=== PATIENT | male | born 1945 | race Caucasian/White ===

== ENCOUNTER → 2018-11-16 | Outpatient (CLI) | payer MEDICARE ==
--- NOTE | 2018-11-16 12:01 | CT ---
EXAMINATION TYPE: CT iac wo con DATE OF EXAM: 11/16/2018 COMPARISON: None HISTORY: Bleeding from tubes in ears x [address] DLP: 142.7mGycm Automated exposure control for dose reduction was used. FINDINGS: The external auditory canals are patent bilaterally. Mastoid air cells show hypoaeration c ompatible with chronic mastoiditis. Mucosal thickening ethmoid air cells and mucosal thickening and waviness sphenoid sinus and left maxillary sinus compatible with chronic sinusitis. The middle ear ossicles are symmetric and unremarkable. There is no evidence of suspicious surroundi ng soft tissue density to suggest cholesteatoma. The scutum is preserved bilaterally. The cochlea and the semicircular canals are symmetric and unrem arkable. Vestibular aqueduct and internal carotid canal appear unremarkable. Temporomandibular join ts are maintained bilaterally. IMPRESSION: 1. Marked hypoaeration of the mastoid air cells compatible with chronic mastoiditis. 2. Chronic ethmoidal sinusitis.
== END ==
LOC: RADCTMAIN 11:25
PROVIDERS: ATTEND Otolaryngology Otolaryngology/Facial Plastic Surgery
DX: R93.89 Abnormal findings on diagnostic imaging of other specified body structures (principal)
CPT/HCPCS: 70480

== ENCOUNTER → 2019-03-28 | Outpatient (CLI) | payer MEDICARE ==
--- NOTE | 2019-03-28 14:41 | BD ---
EXAMINATION TYPE: Axial Bone Density DATE OF EXAM: 03/28/2019 COMPARISON: NONE CLINICAL HISTORY: Loss of height. Height: 5 FT 5 IN Weight: 245 FRAX RISK QUESTIONS: Alcohol (3 or more units per day): NO Family History (Parent hip fracture): NO Glucocorticoids (More than 3mos): NO (Ex: prednisone, prednisolone, methylprednisolone, dexamethasone, and hydrocortisone). History of Fracture in Adulthood: NO Secondary Osteoporosis: 1. Type 1 Diabetes: NO 2. Hyperthyroidism: NO 3. Menopause before 45: NA 4. Malnutrition: NO 5. Chronic liver disease: NO Rheumatoid Arthritis: NO Current Tobacco Use: NO RISK FACTORS HISTORY OF: Active: YES Lost more than 2 inches in height since high school: YES MEDICATIONS: Additional Medications: CHOLESTEROL MEDS, BLOOD PRESSURE MEDS, PLAVIX, BABY ASPIRIN, , HEART MEDS, Additional History: PT HAD STENTS 2016 EXAM MEASUREMENTS: Bone mineral densitometry was performed using the [employer] System. Bone mineral density as measured about the Lumbar spine is: ----- L1-L4(G/cm2): 1.534 T Score Values are as follows: ----- L2: 2.6 ----- L3: 3.6 ----- L4: 4.1 ----- L1-L4: 2.9 BASELINE Bone mineral density about the R hip (g/cm2): 1.024 Bone mineral density about the L hip (g/cm2): 0.991 T Score values are as follows: -----R Neck: -0.1 -----L Neck: -0.3 -----R Total: 1.0 -----L Total: 0.7 BASELINE IMPRESSION: Normal (Values between +1 and -1 indicate normal bone mass). Consider repeating this study in 5 year s or sooner if there is some new clinical indication. NOTE: T-SCORE=SD OF THE YOUNG ADULT MEAN.
== END | disposition home or self-care (01) ==
LOC: RADBDWWP 10:58
PROVIDERS: ATTEND Family Medicine
DX: Z13.820 Encounter for screening for osteoporosis (principal); R29.890 Loss of height
CPT/HCPCS: 77080

== ENCOUNTER → 2019-11-01 | Outpatient (CLI) | payer MEDICARE ==
[2019-11-01 17:07] LABS: African American GFR (CKD) 63.2 (60.0-200.0); Anion Gap 4.3 mmol/L (4.00-12.00); BUN/Creat Ratio 14.62 Ratio (12.00-20.00); Calcium 9.3 mg/dL (8.7-10.3); Carbon Dioxide 28.7 mmol/L (21.6-31.8); Non-African American GFR(CKD) 54.5 (60.0-200.0); Potassium 4.5 mmol/L (3.5-5.5)
== END | disposition home or self-care (01) ==
LOC: LABWHC1 09:35
PROVIDERS: ATTEND Nurse Practitioner
DX: I48.91 Unspecified atrial fibrillation (principal)
CPT/HCPCS: 36415; 80048; 83735

== ENCOUNTER 2019-12-27 06:07 | Day surgery (SDC) | payer MEDICARE ==
[2019-12-24 14:35] VITALS: BMI 39.9
[~2019-12-27 06:07] MED LIST: SODIUM CHLORIDE 0.9% 1,000 ML IV SCH
[2019-12-27 06:36] VITALS: TEMP 98.6
[2019-12-27] MEDS ORDERED: SODIUM CHLORIDE 0.9% 500 ML 500 ML IV ONE (06:36)
[2019-12-27 07:25] LABS: Calcium 8.8 mg/dL (8.4-10.2)
[2019-12-27] MEDS ORDERED: PROPOFOL 10 MG/ML 20 ML VIAL IV ONE (07:30)
[2019-12-27 07:33] LABS: Potassium 4.7 mmol/L (3.5-5.1)
[2019-12-27 08:07] VITALS: RESP 16
--- NOTE | 2019-12-27 10:01 | CE ---
CARDIAC ELECTROPHYSIOLOGY REPORT ELECTRICAL CARDIOVERSION REPORT: INDICATION: Persistent atrial fibrillation in spite of pharmacological efforts. This patient has additionally CAD, prior PCI, hypertension, hyperlipidemia, and bipolar disorder. Risks, benefits, options were explained and he was brought in for the procedure electively. PROCEDURE NOTE: Under the influence of ultra short-acting intravenous anesthetic agent with the attendance of the anesthesiologist, Dr. Santana, a single shock was delivered to the chest wall with anterior and posterior patches. The 250 joules shock was delivered and patient converted to sinus rhythm. This was a successful electrical cardioversion. He remains neurologically intact, hemodynamically stable with sinus bradycardia at 50 beats per minute. Patient will be discharged later on today after he is up and ambulatory. He will be decreasing the amiodarone to 200 mg daily and metoprolol tartrate to 25 mg daily in the morning only and continue Eliquis 5 mg b.i.d. without aspirin 81 mg daily. The details were discussed with the patient as well as his . [id number] / ALICIAN: [id number] /
[2019-12-27 16:33] VITALS: BP 117/58; PULSE 59
[2019-12-27] MEDS ORDERED: ASCORBIC ACID 500 MG TAB PO SCH (18:00)
[2019-12-27] MEDS ORDERED: NON FORMULARY DRUG (Ubidecarenone [Co Q-10] 100 MG Capsule) PO SCH (18:00)
[2019-12-27] MEDS ORDERED: MULTIVITAMINS, THERA 1 EACH TAB PO SCH (18:00)
[2019-12-27] MEDS ORDERED: APIXABAN 5 MG TAB PO SCH (21:00)
[2019-12-27] MEDS ORDERED: ATORVASTATIN 40 MG TAB PO SCH (21:00)
[2019-12-27] MEDS ORDERED: TAMSULOSIN 0.4 MG CAP.ER.24H PO SCH (21:00)
[2019-12-28] MEDS ORDERED: LITHIUM CARBONATE ER 450 MG TABLET.ER PO SCH (09:00)
[2019-12-28] MEDS ORDERED: AMIODARONE 200 MG TAB PO SCH (09:00)
[2019-12-28] MEDS ORDERED: CHOLECALCIFEROL 1,000 UNIT TAB PO SCH (09:00)
[2019-12-28] MEDS ORDERED: METOPROLOL TARTRATE 25 MG TAB PO SCH (09:00)
[2019-12-28] MEDS ORDERED: LOSARTAN 25 MG TAB PO SCH (09:00)
== END 2019-12-27 09:50 | disposition home or self-care (01) ==
LOC: CATHCVL 06:07
PROVIDERS: ATTEND Internal Medicine Interventional Cardiology
DX: I48.19 Other persistent atrial fibrillation (principal); I25.10 Atherosclerotic heart disease of native coronary artery without angina pectoris; I10 Essential (primary) hypertension; E78.5 Hyperlipidemia, unspecified; F31.9 Bipolar disorder, unspecified; G47.33 Obstructive sleep apnea (adult) (pediatric); E66.9 Obesity, unspecified; Z79.01 Long term (current) use of anticoagulants; Z99.89 Dependence on other enabling machines and devices; Z79.82 Long term (current) use of aspirin; Z79.899 Other long term (current) drug therapy; Z88.2 Allergy status to sulfonamides; Z68.41 Body mass index [BMI] 40.0-44.9, adult
CPT/HCPCS: 92960; 80048; J2704

== ENCOUNTER 2019-12-30 13:14 | Emergency (ER) | payer MEDICARE ==
[2019-12-30 13:30] VITALS: TEMP 99.2
--- NOTE | 2019-12-30 13:58 | ED ---
General Adult HPI - General Chief complaint: Upper Respiratory Infection Stated complaint: coughing blood post cardiovert thru Time Seen by Provider: 12/30/19 13:41 Source: patient, RN notes reviewed, old records reviewed Mode of arrival: ambulatory Limitations: no limitations - History of Present Illness Initial comments: 74-year-old male history of CAD, atrial fibrillation currently on Eliquis presenting with cough and hemoptysis. Patient underwent cardiac ablation 3 days ago. He was not intubated for this procedure. He does report some nasal c ongestion and sputum production. He states his sputum was initially brown and then blood-tinged. He denies fever. He does report some mild dyspnea. No central chest pain. No palpitations. No abdominal pain nausea vomiting. - Related Data Home Medications Medication Instructions Recorded Confirmed Hideout Carbonate [Hideout 450 mg PO DAILY 08/09/15 12/27/19 Carbonate ER] Ascorbic Acid [Vitamin C] 500 mg PO DAILY@1800 08/11/15 12/27/19 Cholecalciferol [Vitamin D3 (25 2,000 unit PO DAILY 08/11/15 12/27/19 Mcg = 1000 Iu)] Multivitamins, Thera [Multivitamin 1 each PO DAILY@1800 08/11/15 12/27/19 (formulary)] Ubidecarenone [Co Q-10] 100 mg PO DAILY@1800 08/11/15 12/27/19 Amiodarone [Cordarone] 200 mg PO DAILY 12/24/19 12/27/19 Apixaban [Eliquis] 5 mg PO BID 12/24/19 12/27/19 Atorvastatin [Lipitor] 40 mg PO HS 12/24/19 12/27/19 Losartan [Cozaar] 25 mg PO DAILY 12/24/19 12/27/19 Previous Rx's Medication Instructions Recorded Metoprolol Tartrate [Lopressor] 25 mg PO BID #60 tab 08/13/15 Tamsulosin [Flomax] 0.4 mg PO HS cap.er.24h 08/13/15 Amoxic-Pot Clav 875-125Mg 1 tab PO Q12HR 10 Days #20 tab 12/30/19 [Augmentin 875-125] Azithromycin [Zithromax Z-pack] 0 mg PO DIRECTED #6 tab 12/30/19 Allergies Allergy/AdvReac Type Severity Reaction Status Date / Time Sulfa (Sulfonamide Allergy Mild Rash/Hives Verified 12/30/19 13:30 Antibiotics) Review of Systems ROS Statement: Those systems with pertinent positive or pertinent negative responses have been documented in the HPI. ROS Other: All systems not noted in ROS Statement are negative. Past Medical History Past Medical History: Atrial Fibrillation, Hyperlipidemia, Hypertension, Myocardial Infarction (MS), Prostate Disorder Last Myocardial Infarction Date:: 07/2015 History of Any Multi-Drug Resistant Organisms: None Reported Past Surgical History: Ear Surgery, Heart Catheterization With Stent, Orthopedic Surgery, Tonsillectomy Additional Past Surgical History / Comment(s): bilat thumb sx. sinus sx. bilat cataracts removed with lens implants. bunionectomy and hammer toe fixed rt foot. colonoscopy,. electrocardioversion/ablation for afib. Past Anesthesia/Blood Transfusion Reactions: Postoperative Nausea & Vomiting (PONV) Date of Last Stent Placement:: 07/2015 Past Psychological History: Bipolar Smoking Status: Never smoker Past Alcohol Use History: None Reported Past Drug Use History: None Reported - Past Family History Mother Family Medical History: Cancer General Exam Limitations: no limitations General appearance: alert, in no apparent distress Head exam: Present: atraumatic, normocephalic Eye exam: Present: normal appearance, PERRL, EOMI ENT exam: Present: normal exam, normal oropharynx Neck exam: Present: normal inspection. Absent: tenderness, meningismus Respiratory exam: Present: normal lung sounds bilaterally. Absent: respiratory distress, wheezes, rales, rhonchi, stridor Cardiovascular Exam: Present: regular rate, normal rhythm GI/Abdominal exam: Present: soft. Absent: distended, tenderness, guarding Extremities exam: Present: normal inspection, normal capillary refill. Absent: pedal edema, calf tenderness Neurological exam: Present: alert, oriented X3, CN II-XII intact. Absent: motor sensory deficit Psychiatric exam: Present: normal affect, normal mood Skin exam: Present: warm, dry, intact. Absent: cyanosis, diaphoretic Course Vital Signs 12/30/19 12/30/19 12/30/19 13:25 13:41 14:00 Temperature 99.2 F Pulse Rate 60 55 L 56 L Respiratory 18 31 H 16 Rate Blood Pressure 125/56 135/68 O2 Sat by Pulse 95 96 95 Oximetry 12/30/19 12/30/1920 14:14 14:30 15:00 Temperature Pulse Rate 58 L 52 L Respiratory 24 22 24 Rate Blood Pressure 127/64 130/53 O2 Sat by Pulse 96 98 Oximetry EKG Findings - EKG Comments: EKG Findings:: Sinus bradycardia with first-degree AV block, left axis deviation, no ST segment elevation rate of 55, PA interval 224, QRS duration 106, QTC 415 Medical Decision Making - Medical Decision Making 74-year-old male presenting with cough, sputum production, and hemoptysis. Patient initially reported brown sputum which became blood tinged. There is no bleeding without sputum production. Patient is well-appearing with stable vitals. His lungs are clear to auscultation, there is no wheezing, no rales, no rhonchi. Chest x-ray is performed, interpreted as cardiomegaly without any acute findings, I do suspect underlying patchy infiltrate. He is initiated on antibiotics in the emergency department. He has a mildly elevated white blood cell count, he has a stable hemoglobin. Additional lab testing does indicate normal electrolytes. I did offer inpatient treatment for pneumonia as well as close monitoring. Patient declines. He prefers to be discharged home. He will monitor symptoms including fever, shortness of breath, or any worsening of his hemoptysis. He will follow with his primary care physician this week. He may require further testing including CT of the chest. - Lab Data Result diagrams: 12/30/19 13:59 12/30/19 13:59 Lab Results 12/30/19 12/30/19 12/30/19 Range/Units 13:59 13:59 13:59 WBC 11.5 H (3.8-10.6) k/uL RBC 3.99 L (4.30-5.90) m/uL Hgb 12.2 L (13.0-17.5) gm/dL Hct 38.2 L (39.0-53.0) % MCV 95.8 (80.0-100.0) fL MCH 30.5 (25.0-35.0) pg MCHC 31.9 (31.0-37.0) g/dL RDW 12.9 (11.5-15.5) % Plt Count 189 (150-450) k/uL Neutrophils % 79 % Lymphocytes % 9 % Monocytes % 8 % Eosinophils % 1 % Basophils % 1 % Neutrophils # 9.0 H (1.3-7.7) k/uL Lymphocytes # 1.0 (1.0-4.8) k/uL Monocytes # 0.9 (0-1.0) k/uL Eosinophils # 0.1 (0-0.7) k/uL Basophils # 0.1 (0-0.2) k/uL PT 11.1 (9.0-12.0) sec INR 1.1 (<1.2) APTT 28.4 (22.0-30.0) sec Sodium 135 L (137-145) mmol/L Potassium 4.3 (3.5-5.1) mmol/L Chloride 107 (98-107) mmol/L Carbon Dioxide 25 (22-30) mmol/L Anion Gap 3 mmol/L BUN 19 (9-20) mg/dL Creatinine 1.24 (0.66-1.25) mg/dL Est GFR (CKD-EPI)AfAm 67 (>60 ml/min/1.73 sqM) Est GFR (CKD-EPI)NonAf 58 (>60 ml/min/1.73 sqM) Glucose 87 (74-99) mg/dL Plasma Lactic Acid Jarod (0.7-2.0) mmol/L Calcium 8.8 (8.4-10.2) mg/dL Magnesium 2.0 (1.6-2.3) mg/dL Total Bilirubin 1.7 H (0.2-1.3) mg/dL AST 25 (17-59) U/L ALT 26 (4-49) U/L Alkaline Phosphatase 83 (38-126) U/L Total Protein 6.4 (6.3-8.2) g/dL Albumin 3.6 (3.5-5.0) g/dL 12/30/19 Range/Units 13:59 WBC (3.8-10.6) k/uL RBC (4.30-5.90) m/uL Hgb (13.0-17.5) gm/dL Hct (39.0-53.0) % MCV (80.0-100.0) fL MCH (25.0-35.0) pg MCHC (31.0-37.0) g/dL RDW (11.5-15.5) % Plt Count (150-450) k/uL Neutrophils % % Lymphocytes % % Monocytes % % Eosinophils % % Basophils % % Neutrophils # (1.3-7.7) k/uL Lymphocytes # (1.0-4.8) k/uL Monocytes # (0-1.0) k/uL Eosinophils # (0-0.7) k/uL Basophils # (0-0.2) k/uL PT (9.0-12.0) sec INR (<1.2) APTT (22.0-30.0) sec Sodium (137-145) mmol/L Potassium (3.5-5.1) mmol/L Chloride (98-107) mmol/L Carbon Dioxide (22-30) mmol/L Anion Gap mmol/L BUN (9-20) mg/dL Creatinine (0.66-1.25) mg/dL Est GFR (CKD-EPI)AfAm (>60 ml/min/1.73 sqM) Est GFR (CKD-EPI)NonAf (>60 ml/min/1.73 sqM) Glucose (74-99) mg/dL Plasma Lactic Acid Jarod 1.0 (0.7-2.0) mmol/L Calcium (8.4-10.2) mg/dL Magnesium (1.6-2.3) mg/dL Total Bilirubin (0.2-1.3) mg/dL AST (17-59) U/L ALT (4-49) U/L Alkaline Phosphatase (38-126) U/L Total Protein (6.3-8.2) g/dL Albumin (3.5-5.0) g/dL Disposition Clinical Impression: Pneumonia Disposition: HOME SELF-CARE Condition: Fair Instructions (If sedation given, give patient instructions): Acute Bronchitis (ED), Bacterial Pneumonia (DC) Prescriptions: Amoxic-Pot Clav 875-125Mg [Augmentin 875-125] 1 tab PO Q12HR 10 Days #20 tab Azithromycin [Zithromax Z-pack] 0 mg PO DIRECTED #6 tab Is patient prescribed a controlled substance at d/c from ED?: No Referrals: Aman Preciado DO [Primary Care Provider] - 1-2 days Time of Disposition: 15:18
[2019-12-30 14:37] LABS: Basophils # (A) 0.1 k/uL (0-0.2); Basophils % (A) 1 %; Eosinophils # (A) 0.1 k/uL (0-0.7); Eosinophils % (A) 1 %; HCT 38.2 % (39.0-53.0); HGB 12.2 gm/dL (13.0-17.5); Lymphocytes % (A) 9 %; MCH 30.5 pg (25.0-35.0); MCHC 31.9 g/dL (31.0-37.0); MCV 95.8 fL (80.0-100.0); Mean Platelet Volume 8.3; Monocytes # (A) 0.9 k/uL (0-1.0); Monocytes % (A) 8 %; Neutrophils % (A) 79 %; Platelet Count 189 k/uL (150-450); RBC 3.99 m/uL (4.30-5.90); RDW 12.9 % (11.5-15.5); WBC 11.5 k/uL (3.8-10.6)
[2019-12-30 14:39] LABS: Albumin 3.6 g/dL (3.5-5.0); Calcium 8.8 mg/dL (8.4-10.2); Potassium 4.3 mmol/L (3.5-5.1); Total Bilirubin 1.7 mg/dL (0.2-1.3); Total Protein 6.4 g/dL (6.3-8.2)
[2019-12-30 14:42] LABS: INR 1.1 (<1.2); Partial Thromboplastin Time 28.4 sec (22.0-30.0); Prothrombin Time 11.1 sec (9.0-12.0)
--- NOTE | 2019-12-30 14:51 | XR ---
EXAMINATION TYPE: XR chest 2V DATE OF EXAM: 12/30/2019 COMPARISON: Prior chest x-ray 08/10/2015 HISTORY: Hemoptysis, difficulty breathing TECHNIQUE: Frontal and lateral views of the chest are obtained. FINDINGS: Lung volumes are somewhat improved. There is no focal air space opacity, pleural effusion, or pneumothorax seen. The cardiac silhouette size is stable and enlarged. There are coronary artery calcifications. The osseous structures are intact. IMPRESSION: Stable cardiomegaly. Coronary artery disease.
[2019-12-30] MEDS ORDERED: AZITHROMYCIN 500 MG TAB PO STA (15:14)
[2019-12-30] MEDS ORDERED: AMOXIC-POT CLAV 875MG STARTER PACK 2 TAB BTL PO STA (15:14)
[2019-12-30 15:21] VITALS: BP 122/54; PULSE 54; RESP 16
== END 2019-12-30 15:24 | disposition home or self-care (01) ==
LOC: EC 13:14
DX: J18.9 Pneumonia, unspecified organism (principal); I48.91 Unspecified atrial fibrillation; E78.5 Hyperlipidemia, unspecified; I10 Essential (primary) hypertension; I25.2 Old myocardial infarction; F31.9 Bipolar disorder, unspecified; Z79.01 Long term (current) use of anticoagulants; Z79.899 Other long term (current) drug therapy; Z95.5 Presence of coronary angioplasty implant and graft; Z98.42 Cataract extraction status, left eye; Z98.41 Cataract extraction status, right eye; Z96.1 Presence of intraocular lens; Z88.2 Allergy status to sulfonamides
CPT/HCPCS: 36415; 71046; 80053; 83605; 83735; 83880; 85025; 85610; 85730; 87040; 93005; 99284

== ENCOUNTER → 2020-03-26 | Outpatient (CLI) | payer MEDICARE ==
--- NOTE | 2020-03-26 16:29 | US ---
EXAMINATION TYPE: US kidneys/renal and bladder DATE OF EXAM: 03/26/2020 COMPARISON: NONE CLINICAL HISTORY: R79.89 Elevated kidney functions, N18.3. EXAM MEASUREMENTS: Right Kidney: 9.7 x 5.4 x 5.0 cm Left Kidney: 10.1 x 5.3 x 4.9 cm Right Kidney: No hydronephrosis. Cyst measuring 1.5 x 1.2 x 2.0 cm Left Kidney: No hydronephrosis. Cyst measuring 3.9 x 3.2 x 3.3 cm Bladder: wnl Bilateral Jets seen: Yes There is no evidence for hydronephrosis at this point in time. No nephrolithiasis is seen. The urin chaitanya bladder is not greatly distended. Bilateral ureteral jets are seen. Technologist marked an occas ional scattered thin-walled benign cysts in both kidneys. IMPRESSION: No hydronephrosis is noted bilaterally.
== END | disposition home or self-care (01) ==
LOC: RADUSWWP 16:00
PROVIDERS: ATTEND Family Medicine
DX: R79.89 Other specified abnormal findings of blood chemistry (principal)
CPT/HCPCS: 76770

== ENCOUNTER → 2023-04-12 | Outpatient (CLI) | payer MEDICARE ==
[2023-04-12 20:40] LABS: Blood Urea Nitrogen 15.7 mg/dL (9.0-27.0)
== END | disposition home or self-care (01) ==
LOC: LABWHC1 12:35
PROVIDERS: ATTEND Psychiatry & Neurology Psychiatry
DX: Z51.81 Encounter for therapeutic drug level monitoring (principal); Z79.899 Other long term (current) drug therapy
CPT/HCPCS: 36415; 80178; 82565; 84443; 84520

== ENCOUNTER → 2023-06-22 | Outpatient (CLI) | payer MEDICARE ==
[2023-06-22 09:56] LABS: Partial Thromboplastin Time 25.6 sec (22.0-30.0); Prothrombin Time 11.3 sec (10.0-12.5)
[2023-06-22 16:53] LABS: HCT 38.8 % (39.6-50.0); HGB 12.3 g/dL (13.0-17.0); MCH 30.8 pg (27.0-32.0); MCHC 31.7 g/dL (32.0-37.0); Mean Platelet Volume 11.8 FL (9.5-12.2); NRBC Per 100 WBC 0 X 10*3/uL (0.00-0.01); Platelet Count 161 X 10*3/uL (140-440); RDW 12.4 % (11.5-14.5); WBC 5.88 X 10*3/uL (4.50-10.00)
[2023-06-22 17:14] LABS: ALT 15 U/L (10-49); AST 19 U/L (14-35); Alkaline Phosphatase 85 U/L (41-126); Blood Urea Nitrogen 20.4 mg/dL (9.0-27.0); Calcium 9.3 mg/dL (8.7-10.3); Carbon Dioxide 25.7 mmol/L (21.6-31.8); Chloride 108 mmol/L (96-109); Globulin 2.1 g/dL (1.6-3.3); Glucose 96 mg/dL (70-110); Potassium 4.5 mmol/L (3.5-5.5); Sodium 140 mmol/L (135-145); Total Bilirubin 0.8 mg/dL (0.3-1.2); Total Protein 6.1 g/dL (6.2-8.2)
== END | disposition home or self-care (01) ==
LOC: LABWHC1 08:46
PROVIDERS: ATTEND Orthopaedic Surgery Sports Medicine
DX: Z01.818 Encounter for other preprocedural examination (principal); I48.91 Unspecified atrial fibrillation; R94.31 Abnormal electrocardiogram [ECG] [EKG]; Z22.322 Carrier or suspected carrier of Methicillin resistant Staphylococcus aureus
CPT/HCPCS: 36415; 80053; 85027; 85610; 85730; 87070; 93005

== ENCOUNTER 2023-07-14 07:41 | Observation (INO) | payer MEDICARE ==
[~2023-07-14 07:41] MED LIST changes: +LIDOCAINE 1% (10MG/ML) FOR IV START INTRADERMA PRN; +MIDAZOLAM 2 MG/2 ML VIAL IV PRN; +ONDANSETRON 4 MG/2 ML VIAL IVP PRN; -SODIUM CHLORIDE 0.9% 1,000 ML IV SCH; +TRANEXAMIC 1,000 MG/100ML-NACL 1,000 MG in SALINE 1 100ML.BAG IVPB PRN
[2023-07-14] MEDS: LACTATED RINGERS 1,000 ML IV ONE ×2 (08:08→12:46)
[2023-07-14] MEDS: DEXAMETHASONE SOD PHOSPHATE 4 MG/ML 1 ML VIAL IV ONE (08:44)
[2023-07-14] MEDS: GABAPENTIN 300 MG CAP PO PRN (08:44)
[2023-07-14] MEDS: ONDANSETRON 4 MG/2 ML VIAL IVP ONE (08:44)
[2023-07-14] MEDS: ACETAMINOPHEN TAB 500 MG TAB PO PRN (08:44)
[2023-07-14] MEDS: MELOXICAM 7.5 MG TAB PO PRN (08:44)
[2023-07-14] MEDS ORDERED: HYDROmorphone 0.5 MG/0.5 ML SYRINGE IVP PRN ×2 (08:51)
[2023-07-14] MEDS ORDERED: bisacodyL 10 MG SUPP RECTAL PRN (08:51)
[2023-07-14] MEDS: fentaNYL (PF) 50 MCG/ML 2 ML AMP IVP ONE (08:51)
[2023-07-14] MEDS ORDERED: NALOXONE 0.4 MG/ML 1 ML VIAL IV PRN (08:51)
[2023-07-14] MEDS ORDERED: NA PHOS,M-B/NA PHOS,DI-BA 133 ML ENEMA RECTAL PRN (08:51)
[2023-07-14] MEDS ORDERED: traMADol 50 MG TAB PO PRN (08:51)
[2023-07-14] MEDS: MIDAZOLAM 2 MG/2 ML VIAL IVP ONE (08:51)
[2023-07-14] MEDS ORDERED: MAGNESIUM HYDROXIDE 2,400 MG/30 ML CUP PO PRN (08:51)
--- NOTE | 2023-07-14 09:17 | P.ANPRN ---
Procedure Note - Anesthesia - Nerve Block Performed Right Adductor Canal Infusion Time Out Performed: Yes Date of Procedure: 07/14/23 Procedure Start Time: 08:50 Procedure Stop Time: 08:59 Location of Patient: PreOp Indication: Acute Post-Operative Pain, Requested by Surgeon Sedation Type: Sedate with meaningful contact maintained Preparation: Sterile Prep, Sterile Dressing Position: Supine Catheter: Indwelling Needle Types: Pajunk Needle Gauge: 18 Ultrasound used to visualize needle placement: Yes Ultrasound used to observe medication spread: Yes Injectate: 0.5% Ropivacaine (see comment for volume) (Ropivacaine 0.5% 15 ml + 10 ml NS + 4 mg Dexamethasone) Blood Aspirated: No Pain Paresthesia on Injection Noted: No Resistance on Injection: Normal Image Stored and Saved: Yes Events: Uneventful and Well Tolerated
--- NOTE | 2023-07-14 09:18 | P.ANPRN ---
Procedure Note - Anesthesia - Nerve Block Performed Right iPack Single Time Out Performed: Yes Date of Procedure: 07/14/23 Procedure Start Time: 09:00 Procedure Stop Time: :06 Location of Patient: PreOp Indication: Acute Post-Operative Pain, Requested by Surgeon Sedation Type: Sedate with meaningful contact maintained Preparation: Sterile Prep Position: Left Lateral Needle Types: Pajunk Needle Gauge: 21 Ultrasound used to visualize needle placement: Yes Ultrasound used to observe medication spread: Yes Injectate: 0.5% Ropivacaine (see comment for volume) (Ropivacaine 0.5% 15 ml + 10 ml NS + 4 mg Dexamethasone) Blood Aspirated: No Pain Paresthesia on Injection Noted: No Resistance on Injection: Normal Image Stored and Saved: Yes Events: Uneventful and Well Tolerated
[2023-07-14] MEDS ORDERED: MIDAZOLAM 2 MG/2 ML VIAL ONE (09:24)
[2023-07-14] MEDS ORDERED: SODIUM CHLORIDE 0.9% (PF) 10 ML VIAL ONE (09:24)
[2023-07-14] MEDS ORDERED: LIDOCAINE 1% INJ 10MG/ML (20 ML MDV) ONE (09:24)
[2023-07-14] MEDS ORDERED: fentaNYL (PF) 50 MCG/ML 2 ML AMP ONE (09:24)
[2023-07-14] MEDS ORDERED: PROPOFOL 10 MG/ML 20 ML VIAL IV ONE (09:24)
[2023-07-14] MEDS ORDERED: ESMOLOL 100 MG/10 ML VIAL ONE (09:24)
[2023-07-14] MEDS ORDERED: ROCURONIUM 10 MG/ML (5 ML VIAL) IV ONE (09:24)
[2023-07-14] MEDS ORDERED: TRANEXAMIC 1,000 MG/100ML-NACL PREMIX BAG ONE (09:24)
[2023-07-14] MEDS ORDERED: NEOSTIGMINE 1 MG/ML 10 ML VIAL ONE (09:24)
[2023-07-14] MEDS ORDERED: SUCCINYLCHOLINE CHLORIDE 200 MG/10 ML VIAL IV ONE (09:24)
[2023-07-14] MEDS ORDERED: ePHEDrine 50 MG/ML 1 ML VIAL ONE (09:24)
[2023-07-14] MEDS ORDERED: DEXAMETHASONE SOD PHOSPHATE 4 MG/ML 1 ML VIAL ONE (09:24)
[2023-07-14] MEDS ORDERED: ROPIVACAINE 5 MG/ML 30 ML VIAL ONE (09:24)
[2023-07-14] MEDS: ceFAZolin 1,000 MG in SODIUM CHLORIDE 0.9% 1,000 ML IRRIGATION ONE (09:24)
[2023-07-14] MEDS ORDERED: GLYCOPYRROLATE 0.2 MG/ML 2 ML VIAL ONE (09:24)
[2023-07-14] MEDS: HYDROmorphone 0.5 MG/0.5 ML SYRINGE IVP PRN (11:34)
[2023-07-14] MEDS: ROPIVACAINE 1,100 MG, SODIUM CHLORIDE 0.9% 500 ML 330 ML, EMPTY PAIN BALL 1 EACH MISCELLANE PRN (11:56)
--- NOTE | 2023-07-14 12:36 | XR ---
EXAMINATION TYPE: XR knee limited RT DATE OF EXAM: 07/14/2023 11:58 AM CLINICAL INDICATION:Male, 78 years old with history of Evaluation for Postop abnormality and alignmen t; H COMPARISON: None. TECHNIQUE: XR knee limited RT; examined in Frontal, lateral projections. FINDINGS: Status post total knee arthroplasty changes with hardware in appropriate alignment and in tact. No evidence of fracture. Subcutaneous lucencies and lucencies within the joint consistent with surgical changes. IMPRESSION: Status post total knee arthroplasty changes with hardware intact and appropriate alignment. No fractu res identified.
--- NOTE | 2023-07-14 13:02 | OP ---
OPERATIVE REPORT DATE OF SERVICE : 07/14/2023 REPLENISHMENT BUYER: Bryson Strong PA-C. PREOPERATIVE DIAGNOSIS: Right knee osteoarthrosis. POSTOPERATIVE DIAGNOSIS: Right knee osteoarthrosis. OPERATION: Right total knee arthroplasty. ANESTHESIA: General endotracheal. ESTIMATED BLOOD LOSS: 100 mL. TOURNIQUET TIME: 54 minutes at 250 mmHg. COMPLICATIONS: None apparent. DRAINS: None. DISPOSITION: Postanesthesia care unit. INDICATIONS: Yonatan is a very pleasant 78-year-old male with longstanding history of right knee pain. History and physical examination are consistent with advanced right knee osteoarthrosis. He has been through significant operative management at this point. Further treatment options were discussed, and he has decided to go forward with a right total knee arthroplasty. The risks of procedure were discussed with him in detail. These risks include, but are not limited to risk of infection, nerve damage, bleeding, pain, and a small risk of deep vein thrombosis which could lead to fatal pulmonary embolism. There is also small risk of loosening of the implant which could require revision operation. The patient understands these risks. All of his questions were answered to his satisfaction. Appropriate informed consent was obtained. DESCRIPTION OF PROCEDURE: The patient was identified in the preoperative holding area. Surgical site was marked by both the patient and myself. He was given 2 g of Ancef IV for prophylactic purposes. He was then transported to the operative suite. He was placed supine on the operating room table. General anesthetic was then administered and dosed per the Anesthesia Department without apparent complication. Examination under anesthesia was then performed. The patient was 2 to 3 degrees shy of full extension. He had 100 degrees of flexion in the medial collateral ligament, lateral collateral ligament, and posterior cruciate ligaments were stable. A tourniquet was then placed high on the right upper thigh well-padded in preparation for surgery. The patient's right lower extremity was then prepped and draped in the usual sterile fashion. Standard surgical pause was undertaken to ensure that we were operating the correct site and appropriate preoperative antibiotics had been given. All staff in the room were in agreement, and we proceeded. The outlines of the patella were marked with a surgical pen. A planned 12 cm vertical incision centered over the patella was marked with a surgical pen. Legs were then exsanguinated with an Esmarch dressing. The knee was then flexed, and tourniquet was inflated to 250 mmHg. The total tourniquet time for the procedure was 54 minutes. Incision was then made with a 10-blade scalpel. Dissection was carried down sharply overlying fascia. Great care was taken to minimize the skin flaps. The knee was then exposed using a standard medial parapatellar approach. A small cuff of quadriceps tendon was then left for suturing. He was in a small bit of varus preoperatively. A standard medial release was then made. Superficial medial collateral ligament was dissected off the bone around to the posterior aspect of the proximal tibia. The medial meniscus was then excised as well. The lateral meniscus was also released anteriorly. The leg was then externally rotated. The patella was everted. The knee was flexed. Retractors were then placed to protect the collateral ligaments. I then proceeded to remove the infrapatellar fat pad. This was excised sharply tangentially with fibers of the patellar tendon. I then proceeded to remove the peripheral osteophytes. This was done with a rongeur. I then proceeded with the distal femoral resection. He did have near full extension. A planned 9 mm resection was then done. The femoral canal was then entered in the mid midline of the femur approximately 10 mm anterior to the origin of the posterior cruciate ligament. The ida was then advanced down the center of the femur and placed intramedullary. Based on the preoperative radiographs, the angle between the anatomic and mechanical axis of the femur was approximately 4 to 5 degrees. The valgus angle of the distal femoral cutting guide was then set at 4 degrees for the right knee. The distal femoral cutting guide was then advanced over the intramedullary ida. This was seated firmly against the femur. Then, as mentioned, planned to take 9 mm off the distal femur. The cutting block was then secured onto the femur with pins. The jig was then removed. The distal femoral cut was made through the slot of the block. The pins were then removed. The distal femoral cutting block was removed. The accuracy of the distal femoral cuts was checked with 2 flat bars. I then proceeded with femoral sizing. Posterior referencing sizing guide was held firmly against the resected distal surface of the femur. The posterior condyles were resting on the posterior plane of the guide. The sizing stylus was then placed on the anterior femur. The size was measured as a size 8. I then assessed for femoral rotation. The plan was for 3 degrees of external rotation. Three degrees of external rotation was placed onto the jig. These holes were then marked. We then confirmed the rotation by 3 separate methods. This was done using epicondylar axis as well as Whitesides line and posterior referencing. It was deemed that the external rotation was proper. I then went forward with placement of the femoral cutting block. This was placed over the previously-placed pin holes. The Toby wing was then placed on the anterior slots to ensure that we would not notch the anterior femur with the anterior femoral cut. I then proceeded with the anterior femoral cut. This was flushed with the anterior cortex of the femur. The posterior cuts were then made followed by the anterior chamfer cut, then the posterior chamfer cut. The cutting block was then removed. Throughout the resection, the collateral ligaments were protected with retractors. I then placed a trial size 8 femur. Slightly wide, but the narrow fit very nicely, and it fit flush with the distal end of the femur. The drill hole was then made. I then proceeded with the tibial cut. I planned for cruciate-retaining knee. The guide was placed and set for varus and valgus and for slope. The height was set for approximately 2 mm resection from the medial tibial plateau which was the lower side. I was happy with the alignment and the amount of resection. The cutting block was then pinned to the proximal tibia. The alignment ida was removed and the proximal tibia was resected with a reciprocating saw. Again, this was done with retractors protecting the collateral ligaments as well as the posterior cruciate ligament. I then proceeded to evaluate the flexion and extension gaps. A 10 mm block was then placed. The flexion and extension gaps were equal. I then proceeded to resect the posterior osteophytes. He had very minimal posterior osteophytes. This was done using a curved osteotome. This resected the posterior osteophytes, and posterior capsular stripping was done off the posterior aspect of the femur at this time. The osteophytes were then removed. I then proceeded with resection of the patella. The thickness of the patella was measured using the caliper. The thickness was 24 mm. The thickness of the anticipated patellar dome was taken into account. Resection was then performed and confirmed to be equal in 4 quadrants using a caliper. Approximately 14 mm of bone remained after resection. A 32 x 8.5 mm standard patellar trial was then placed. The holes were drilled and the trial was then placed. I then proceeded with sizing tibial plate. A size E tibial plate fit very nicely. I then placed a trial femur, the tibial tray, and the patellar button. A 10 mm trial tibial insert was also placed. The components fit very nicely. He had full extension and flexion. The extension and flexion gaps were equal and stable to both varus and valgus stress. The patella tracked appropriately. The tibial tray rotation was then marked with a Bovie. It was externally rotated properly. I then proceeded with tibial preparation. I first drilled the femoral holes and removed the femoral component. The tibial tray was then set for proper external rotation as well as medial lateral placement onto the tibia. It was then pinned into place. I then proceeded with punching the keel. I then decided to proceed with cementing of all our components. The knee was thoroughly irrigated with sterile saline solution via pulse lavage. The lateral geniculate artery was identified and cauterized. All blood was removed from the bone of the tibia, femur, and patella with pulsed lavage. I then proceeded with cementing. Two packs of antibiotic bone cement were prepared on the back table by surgical supervisor. I then proceeded with cementing of the tibia first. The cement was impacted into the keel as well as deeply seated into the bone. A second coat of cement was then placed. The tibia was then impacted into place. Excess cement was removed with Sedona's and Jokers. I then proceeded with cementing the femoral component. The femoral component was also cemented using standard technique. Excess cement was removed. A 10 mm trial insert was then placed in the knee. It was brought into full extension with a constant axial load placed until the cement had hardened. The patellar component was then cemented. This was held firmly with compressive device until the cement had dried. When the cement had dried, the knee was taken out of extension. All excess cement was removed from around the prosthesis. I then trialed the knee with a 10 mm insert. Flexion and extension gaps were appropriate. The knee was stable. It came into full extension. I decided to go forward with a 10 mm Medial Congruent cross-linked cruciate- retaining tibial insert. Polyethylene was then placed on the tibial tray and locked into place. The knee was then reduced. The knee was again further irrigated with sterile saline solution with antibiotic added. The tourniquet was then deflated. Total tourniquet time for the procedure was 54 minutes at 250 mmHg. Final components were Mansi Persona size 8 narrow cruciate-retaining femoral component, size E tibial tray, a 10 mm Medial Congruent cruciate-retaining polyethylene insert, and a 32 x 8.5 mm patella. I then proceeded with closure. Again, the knee was thoroughly irrigated. The quadriceps tendon and the medial retinaculum were reapproximated with #2 Ethibond suture. The extensor mechanism was then closed with a running #2 Quill suture. Subcutaneous tissues were then closed with 2-0 Vicryl interrupted suture. The skin was closed with a running 3-0 Quill suture. Dermabond was applied to the incision. Sterile compressive dressing was then applied. All sponge and needle counts were deemed correct prior to closure. The patient tolerated the procedure without apparent complication. He was transferred to recovery room in stable condition. MMJORDONL / SAVANA: [id number] /
[2023-07-14] MEDS: LACTATED RINGERS 1,000 ML IV SCH ×2 (15:16)
--- NOTE | 2023-07-14 17:47 | P.CONS ---
History of Present Illness - Reason for Consult Consult date: 07/14/23 Medical Management Requesting physician: Christian London - History of Present Illness History of Presenting Illness: Patient is a very pleasant 78-year-old male with a past medical history of CAD with stent, chronic atrial fibrillation on anticoagulation with Eliquis, hypertension, hyperlipidemia, and BPH. He is currently admitted under orthopedic surgery team status post elective right total knee arthroplasty secondary to severe right knee osteoarthrosis. We have been consulted for medical management throughout hospitalization. Patient seen and fully evaluated in room 473. At time of assessment patient slightly drowsy from surgery but easily awoken via verbal stimuli. He currently denies having any pain or discomfort. Patient has drank only water since surgical procedure but is tolerating well with no episodes of postoperative nausea or vomiting reported. Patient currently denies having any postoperative pain, chest pain, palpitations, shortness of breath, or any other complaints. Right lower extremity remains slightly numb from surgical procedure and ropi vacaine pump, however patient able to wiggle toes and reports cessation decreased but intact. Patient has not yet urinated since postoperative procedure was completed. Review of systems: Pertinent positives and negatives as discussed in HPI, a complete review of systems was performed and all other systems are negative. Physical exam: Vital signs reviewed and stable. General: Nontoxic, no distress and appears stated age. Derm: Skin warm and dry, normal coloration for ethnicity. Head: Atraumatic, normocephalic and symmetric. Eyes: EOMs intact, no lid lag, and anicteric sclera Mouth: no lip lesions, mucus membranes moist Cardiovascular: regular rate and rhythm with normal S1S2, no murmur, positive posterior tibial pulses bilaterally, and cap refill < 2 seconds. Lungs: Respirations even, regular, and unlabored on room air. Lungs CTA bilaterally, no rhonchi, no rales, no wheezing, and no accessory muscle usage. Abdominal: soft, nontender to palpation, no guarding, no appreciable organomegaly Ext: ROM intact. No gross muscle atrophy, no edema, no contractures Neuro: Speech clear, face symmetrical and CN II-XII grossly intact with no noted focal neuro deficits Psych: Alert and oriented to person, place, time, and situation. Appropriate and pleasant affect. Assessment and Plan of Care: Status post right total knee arthroplasty -Management per primary admitting orthopedic surgery team including pain management, wound/dressing management, weightbearing, and PT/OT. Postoperative urinary retention History of BPH -Order placed for bladder scan to monitor for postvoid residuals and/or urinary retention, patient to be straight cathed as needed for postvoid residual greater than or equal to 350 cc. -Continue Flomax 0.4 mg nightly. Chronic atrial fibrillation CAD with stent Hypertension Hyperlipidemia -Patient to continue daily medication regimen with atorvastatin 40 mg nightly, losartan 25 mg daily, and metoprolol 25 mg daily -Discussed with orthopedic surgery PA, patient cleared to resume Eliquis 5 mg twice daily beginning tomorrow morning. Data reviewed -Vital signs reviewed and stable. Blood pressure 125/71, heart rate 72, respiratory rate 16, and SpO2 of 97% on room air. Thank you for allowing us to participate in the care of this pleasant patient. Do not hesitate to contact us with questions. Someone can be reached from the [facility] all hours of the day at [phone] or via [employer]. Patient was seen independently by Nurse Practitioner. This document was prepared using Tello dictation software. Please allow for errors in extractor loader and unloader while rare they do occur. Karthikeyan Patiño NP rendered care for this patient independently, reviewed the findings and plan as documented in the note above. I did not physically speak with or examine the patient on this date. Past Medical History Past Medical History: Atrial Fibrillation, Hyperlipidemia, Hypertension, Myocardial Infarction (OK), Prostate Disorder Additional Past Medical History / Comment(s): uses CPAP Last Myocardial Infarction Date:: 07/2015 History of Any Multi-Drug Resistant Organisms: None Reported Past Surgical History: Ear Surgery, Heart Catheterization With Stent, Orthopedic Surgery, Tonsillectomy Additional Past Surgical History / Comment(s): bilat thumb sx. sinus sx. bilat cataracts removed with lens implants. bunionectomy and hammer toe fixed rt foot. colonoscopy,. electrocardioversion/ablation for afib. Past Anesthesia/Blood Transfusion Reactions: Postoperative Nausea & Vomiting (PONV) Additional Past Anesthesia/Blood Transfusion Reaction / Comm: severe PONV after a surgery years ago in 1995 Date of Last Stent Placement:: 07/2015 Smoking Status: Never smoker - Past Family History Mother Family Medical History: Cancer Medications and Allergies Home Medications Medication Instructions Recorded Confirmed Type Massanutten Carbonate [Massanutten 300 mg PO DAILY 08/09/15 07/14/23 History Carbonate ER] Ascorbic Acid [Vitamin C] 500 mg PO DAILY@1800 08/11/15 07/14/23 History Cholecalciferol [Vitamin D3 (25 2,000 unit PO DAILY 08/11/15 07/14/23 History Mcg = 1000 Iu)] Multivitamins, Thera [Multivitamin 1 each PO DAILY@1800 08/11/15 07/14/23 History (formulary)] Tamsulosin [Flomax] 0.4 mg PO HS cap.er.24h 08/13/15 07/04/23 Rx Apixaban [Eliquis] 5 mg PO BID 12/24/19 07/14/23 History Atorvastatin [Lipitor] 40 mg PO HS 12/24/19 07/14/23 History Losartan [Cozaar] 25 mg PO DAILY 12/24/19 07/14/23 History Metoprolol Tartrate [Lopressor] 25 mg PO DAILY 07/04/23 07/14/23 History Docusate [Colace] 100 mg PO BID #60 capsule 07/15/23 Rx HYDROcodone/APAP 7.5-325MG [Cobb 1 each PO Q4H PRN #42 tab 07/15/23 Rx 7.5-325] Ondansetron [Zofran] 4 mg PO Q8HR PRN #21 tab 07/15/23 Rx Allergies Allergy/AdvReac Type Severity Reaction Status Date / Time Sulfa (Sulfonamide Allergy Mild Rash/Hives Verified 07/14/23 08:23 Antibiotics) Physical Exam Vitals: Vital Signs Temp Pulse Pulse Resp BP Pulse Ox 07/14/23 12:54 78 18 119/55 93 L 07/14/23 12:39 67 18 131/62 93 L 07/14/23 12:24 76 14 127/59 95 07/14/23 12:09 68 18 133/66 93 L 07/14/23 11:54 80 18 129/74 96 07/14/23 11:39 89 18 137/65 97 07/14/23 11:24 97.2 F L 112 H 23 146/77 97 07/14/23 09:17 53 L 16 104/53 97 07/14/23 08:23 98.6 F 54 L 16 120/58 95 Intake and Output 07/13/23 07/14/23 07/14/23 22:59 06:59 14:59 Intake Total 1051 Output Total 100 Balance 951 Intake: IV 1051 Output: Estimated Blood Loss 100 Other: Weight 95.4 kg Results CBC & Chem 7: 07/15/23 07:09 07/15/23 07:09
[2023-07-14] MEDS ORDERED: MULTIVITAMINS, THERA 1 EACH TAB PO SCH (18:00)
[2023-07-14] MEDS: ASCORBIC ACID 500 MG TAB PO SCH (18:43)
[2023-07-14] MEDS: HYDROcodone/APAP 7.5-325MG 1 EACH TAB PO PRN (18:48)
[2023-07-14] MEDS: TAMSULOSIN 0.4 MG CAP.ER.24H PO SCH (20:18)
[2023-07-14] MEDS: ATORVASTATIN 40 MG TAB PO SCH (20:18)
[2023-07-14] MEDS: SENNOSIDES-DOCUSATE SODIUM 1 EACH TAB PO SCH (20:18)
[2023-07-15] MEDS: HYDROcodone/APAP 7.5-325MG 1 EACH TAB PO PRN (01:27)
[2023-07-15] MEDS: METOPROLOL TARTRATE 25 MG TAB PO SCH (09:26)
[2023-07-15] MEDS: CHOLECALCIFEROL 25 MCG (1000 IU) TABLET PO SCH (09:27)
[2023-07-15] MEDS: LOSARTAN 25 MG TAB PO SCH (09:27)
[2023-07-15] MEDS: APIXABAN 5 MG TAB PO SCH (09:27)
[2023-07-15] MEDS: LITHIUM CARBONATE ER 300 MG TABLET.ER PO SCH (10:24)
[2023-07-15 10:29] LABS: Basophils # (A) 0.02 X 10*3/uL (0.00-0.10); Basophils % (A) 0.1 %; Eosinophils # (A) 0 X 10*3/uL (0.04-0.35); Eosinophils % (A) 0 %; HCT 35.4 % (39.6-50.0); Lymphocytes # (A) 0.58 X 10*3/uL (0.90-5.00); Lymphocytes % (A) 2.9 %; MCH 30.6 pg (27.0-32.0); MCHC 31.1 g/dL (32.0-37.0); MCV 98.6 FL (80.0-97.0); Mean Platelet Volume 11.6 FL (9.5-12.2); Monocytes # (A) 0.94 X 10*3/uL (0.20-1.00); Monocytes % (A) 4.7 %; NRBC Per 100 WBC 0 X 10*3/uL (0.00-0.01); Neutrophils # (A) 18.41 X 10*3/uL (1.80-7.70); Neutrophils % (A) 91.5 %; Platelet Count 152 X 10*3/uL (140-440); RBC 3.59 X 10*6/uL (4.40-5.60); RDW 12.5 % (11.5-14.5); WBC 20.12 X 10*3/uL (4.50-10.00)
[2023-07-15 10:41] LABS: Blood Urea Nitrogen 19.8 mg/dL (9.0-27.0); Glucose 119 mg/dL (70-110)
[2023-07-15 10:42] LABS: ALT 14 U/L (10-49); AST 19 U/L (14-35); Albumin 3.9 g/dL (3.8-4.9); Albumin/Globulin Ratio 1.95 Ratio (1.60-3.17); Alkaline Phosphatase 76 U/L (41-126); Calcium 8.8 mg/dL (8.7-10.3); Carbon Dioxide 23.3 mmol/L (21.6-31.8); Chloride 103 mmol/L (96-109); Magnesium 1.9 mg/dL (1.5-2.4); Potassium 4.9 mmol/L (3.5-5.5); Sodium 136 mmol/L (135-145); Total Bilirubin 0.7 mg/dL (0.3-1.2); Total Protein 5.9 g/dL (6.2-8.2)
--- NOTE | 2023-07-15 11:09 | P.PN ---
Progress Note - Text Progress Note Date: 07/15/23 Postoperative day # 1 status post total knee arthroplasty, and adductor canal catheter placed for postoperative analgesia, currently at ropivacaine 0.2% 8 mL per hour and continuous infusion, visual analogue scale is 3-4/10, patient using oral pain medication for breakthrough pain. Assessment and plan= Acute postoperative pain, adductor canal catheter for pain control, pain is well controlled we'll continue the same management.
[2023-07-15] MEDS: HYDROmorphone 0.5 MG/0.5 ML SYRINGE IVP PRN (12:45)
--- NOTE | 2023-07-15 13:28 | P.PN ---
Subjective Progress Note Date: 07/15/23 Principal diagnosis: Right TKA Patient is seen at bedside this morning. He is postop day #1 from right total knee arthroplasty. He has pain at the surgical site as expected. He is having some urinary retention but denies any new complaints. He denies numbness, tingling or calf pain. Review of systems is negative for fever, chills, chest pain, shortness of breath or other Objective - Vital Signs Vital signs: Vital Signs Temp 98.9 F 07/15/23 08:00 Pulse 75 07/15/23 08:00 Resp 18 07/15/23 08:00 BP 121/69 07/15/23 08:00 Pulse Ox 95 07/15/23 08:00 FiO2 Intake & Output 07/14/23 07/15/23 07/15/23 18:59 06:59 18:59 Intake Total 1051 1250 Output Total 100 1370 Balance 951 -120 Weight 95.4 kg Intake: IV 1051 Intake, IV Titration 1250 Amount Lactated Ringers 1,000 ml 1200 @ 100 mls/hr IV .Q10H REMIGIO Rx#:[id number] ceFAZolin 2 gm In Sodium 50 Chloride 0.9% 50 ml @ 100 mls/hr IVPB Q8H REMIGIO Rx#: [id number] Output: Urine 1370 Straight 1370 Estimated Blood Loss 100 - Exam Inspection reveals a benign surgical wound. There is no active bleeding or drainage. Neurovascular status is intact throughout the lower extremity with motor and sensation fully intact. Calf is soft and nontender. 2+ dorsalis pedis pulse and less than 2 second cap refill is present. - Constitutional General appearance: Present: no acute distress - Labs CBC & Chem 7: 07/15/23 07:09 07/15/23 07:09 Labs: Abnormal Lab Results - Last 24 Hours (Table) 07/15/23 07/15/23 Range/Units 07:09 07:09 WBC 20.12 H (4.50-10.00) X 10*3/uL RBC 3.59 L (4.40-5.60) X 10*6/uL Hgb 11.0 L (13.0-17.0) g/dL Hct 35.4 L (39.6-50.0) % MCV 98.6 H (80.0-97.0) FL MCHC 31.1 L (32.0-37.0) g/dL Immature Gran # 0.17 H (0.00-0.04) X 10*3/uL Neutrophils # 18.41 H (1.80-7.70) X 10*3/uL Lymphocytes # 0.58 L (0.90-5.00) X 10*3/uL Eosinophils # 0 L (0.04-0.35) X 10*3/uL Glucose 119 H (70-110) mg/dL Total Protein 5.9 L (6.2-8.2) g/dL Assessment and Plan (1) Right knee DJD Narrative/Plan: He will continue with routine postop orthopedic protocol including pain management, wound care, PT, DVT prophylaxis and medical management and monitor his retention. Expect that he will transfer to home tomorrow Current Visit: Yes Status: Acute Priority: Medium Code(s): M17.11 - UNILATERAL PRIMARY OSTEOARTHRITIS, RIGHT KNEE SNOMED Code(s): 738082352971932 Time with Patient: Less than 30
[2023-07-15] MEDS: MULTIVITAMINS, THERA 1 EACH TAB PO SCH (14:20)
--- NOTE | 2023-07-15 15:01 | P.PN ---
Subjective Progress Note Date: 07/15/23 Hospital course: Patient is a very pleasant 78-year-old male with a past medical history of CAD with stent, chronic atrial fibrillation on anticoagulation with Eliquis, hypertension, hyperlipidemia, obstructive sleep apnea CPAP dependent nightly, and BPH. He is currently admitted under orthopedic surgery team status post elective right total knee arthroplasty secondary to severe right knee osteoarthrosis. We have been consulted for medical management throughout hospitalization. Physical exam: Vital signs reviewed and stable. General: Nontoxic, no distress and appears stated age. Derm: Skin warm and dry, normal coloration for ethnicity. Head: Atraumatic, normocephalic and symmetric. Eyes: EOMs intact, no lid lag, and anicteric sclera Mouth: no lip lesions, mucus membranes moist Cardiovascular: regular rate and rhythm with normal S1S2, no murmur, positive posterior tibial pulses bilaterally, and cap refill < 2 seconds. Lungs: Respirations even, regular, and unlabored on room air. Lungs CTA bilate rally, no rhonchi, no rales, no wheezing, and no accessory muscle usage. Abdominal: soft, nontender to palpation, no guarding, no appreciable organomegaly Ext: No gross muscle atrophy, no edema, no contractures. Movement and sensation intact. Postoperative dressing/Joe wrap in place to right knee Neuro: Speech clear, face symmetrical and CN II-XII grossly intact with no noted focal neuro deficits Psych: Alert and oriented to person, place, time, and situation. Appropriate and pleasant affect. Assessment and Plan of Care: Status post right total knee arthroplasty -Management per primary admitting orthopedic surgery team including pain management, wound/dressing management, weightbearing, and PT/OT. Postoperative urinary retention History of BPH -Patient has been straight cathed x 2, if requires a third straight catheterization for urinary retention RN instructed to insert Mckeon catheter. -Continue bladder scan to monitor for postvoid residuals and/or urinary retention, patient to be straight cathed as needed for postvoid residual greater than or equal to 350 cc. -Continue Flomax 0.4 mg nightly. Acute postoperative blood loss anemia, stable and expected finding -Preoperative hemoglobin 12.3, postoperative hemoglobin of 11.0. This is a stable and expected finding, no signs of bleeding. No need for further intervention or repeat testing at this time. Postoperative leukocytosis, reactive no signs of infection -Postoperative leukocytosis with WBC count of 20.12. Believed to be reactive secondary to surgical procedure. Patient showing no signs of infection. Chronic atrial fibrillation CAD with stent Hypertension Hyperlipidemia -Patient to continue daily medication regimen with atorvastatin 40 mg nightly, losartan 25 mg daily, and metoprolol 25 mg daily -Discussed with orthopedic surgery PA, patient cleared to resume Eliquis 5 mg twice daily and was restarted this morning Data reviewed: -Vital signs reviewed and stable. Blood pressure 121/69, heart rate 75, respira tory rate 18, temp 98.9 F, and SpO2 95% on room air. -Postoperative labs reviewed. CBC showing leukocytosis with WBC count of 20.12 and hemoglobin of 11.0. BMP unremarkable. Liver profile unremarkable. [place] level therapeutic at 0.8. Thank you for allowing us to participate in the care of this pleasant patient. Do not hesitate to contact us with questions. [facility] all hours of the day at [phone] or via [employer]. Patient was seen independently by Nurse Practitioner. This document was prepared using [employer] dictation software. Please allow for errors in roofing machine tender while rare they do occur. I reviewed the documentation as provided by the NATALIE above, who is the original author of this note. I agree with the documented assessment and plan, with the following changes: none Objective - Vital Signs Vital signs: Vital Signs Temp 98.9 F 07/15/23 08:00 Pulse 75 07/15/23 08:00 Resp 18 07/15/23 08:00 BP 121/69 07/15/23 08:00 Pulse Ox 95 07/15/23 08:00 FiO2 Intake & Output 07/14/23 07/15/23 07/15/23 18:59 06:59 18:59 Intake Total 1051 1250 Output Total 100 1370 Balance 951 -120 Weight 95.4 kg Intake: IV 1051 Intake, IV Titration 1250 Amount Lactated Ringers 1,000 ml 1200 @ 100 mls/hr IV .Q10H REMIGIO Rx#:[id number] ceFAZolin 2 gm In Sodium 50 Chloride 0.9% 50 ml @ 100 mls/hr IVPB Q8H REMIGIO Rx#: [id number] Output: Urine 1370 Straight 1370 Estimated Blood Loss 100 - Labs CBC & Chem 7: 07/15/23 07:09 07/15/23 07:09
[2023-07-16] MEDS ORDERED: METOPROLOL TARTRATE 25 MG TAB PO SCH (09:00)
[2023-07-16] MEDS: METOPROLOL TARTRATE 25 MG TAB PO STA (09:43)
--- NOTE | 2023-07-16 12:18 | P.PN ---
Subjective Progress Note Date: 07/16/23 Principal diagnosis: Right TKA Patient is seen at bedside this morning. He is postop day #2 from right total knee arthroplasty. He has pain at the surgical site as expected. He is having some urinary retention and went into Afib yesterday which he has been on chronic medication for. He denies any new complaints. He denies numbness, tingling or calf pain. Review of systems is negative for fever, chills, chest pain, shortness of breath or other Objective - Vital Signs Vital signs: Vital Signs Temp 98.4 F 07/16/23 07:27 Pulse 140 H 07/16/23 07:40 Resp 19 07/16/23 07:27 BP 197/75 07/16/23 07:27 Pulse Ox 94 L 07/16/23 07:27 FiO2 Intake & Output 07/15/23 07/16/23 07/16/23 18:59 06:59 18:59 Output Total 1095 2000 800 Balance -1095 -2000 -800 Output: Urine 620 2000 800 Uretheral (Mckeon) 800 Post Void Residual 475 Other: Voiding Method Indwelling Catheter Indwelling Catheter - Exam Inspection reveals a benign surgical wound. There is no active bleeding or drainage. Neurovascular status is intact throughout the lower extremity with motor and sensation fully intact. Calf is soft and nontender. 2+ dorsalis pedis pulse and less than 2 second cap refill is present. - Constitutional General appearance: Present: no acute distress - Labs CBC & Chem 7: 07/15/23 07:09 07/15/23 07:09 Assessment and Plan (1) Right knee DJD Narrative/Plan: He will continue with routine postop orthopedic protocol including pain management, wound care, PT, DVT prophylaxis and medical management and monitor his retention for which he is on flomax. Medicine is following for his afib as well. Expect that he will transfer to home tomorrow Current Visit: Yes Status: Acute Priority: Medium Code(s): M17.11 - UNILATERAL PRIMARY OSTEOARTHRITIS, RIGHT KNEE SNOMED Code(s): 927195209927549 Time with Patient: Less than 30
[2023-07-16] MEDS: ONDANSETRON 4 MG/2 ML VIAL IVP PRN (12:58)
--- NOTE | 2023-07-16 14:13 | P.PN ---
Subjective Progress Note Date: 07/16/23 Hospital course: Patient is a very pleasant 78-year-old male with a past medical history of CAD with stent, chronic atrial fibrillation on anticoagulation with Eliquis, hypertension, hyperlipidemia, obstructive sleep apnea CPAP dependent nightly, and BPH. He is currently admitted under orthopedic surgery team status post elective right total knee arthroplasty secondary to severe right knee osteoarthrosis. We have been consulted for medical management throughout hospitalization. Physical exam: Patient seen and fully evaluated at bedside this morning. Patient was working with PT. Upon returning to room patient with significant amount of pain. Patient also having brief episodes of RVR with movement. He is also hypertensive this morning. Metoprolol increased to 50 mg daily. Discussed with RN need for pain control. Patient with chronic atrial fibrillation, will hold off on cardiology consult and treat underlying issues of pain. If patient converts to persistent RVR may consider cardiology consult at this time. Vital signs reviewed and stable. General: Nontoxic, no distress and appears stated age. Derm: Skin warm and dry, normal coloration for ethnicity. Head: Atraumatic, normocephalic and symmetric. Eyes: EOMs intact, no lid lag, and anicteric sclera Mouth: no lip lesions, mucus membranes moist Cardiovascular: regular rate and rhythm with normal S1S2, no murmur, positive posterior tibial pulses bilaterally, and cap refill < 2 seconds. Lungs: Respirations even, regular, and unlabored on room air. Lungs CTA bilaterally, no rhonchi, no rales, no wheezing, and no accessory muscle usage. Abdominal: soft, nontender to palpation, no guarding, no appreciable organomegaly Ext: No gross muscle atrophy, no edema, no contractures. Movement and sensation intact. Postoperative dressing/Joe wrap in place to right knee Neuro: Speech clear, face symmetrical and CN II-XII grossly intact with no noted focal neuro deficits Psych: Alert and oriented to person, place, time, and situation. Appropriate and pleasant affect. Assessment and Plan of Care: Atrial fibrillation with RVR -Likely secondary to persistent/moderate pain. Worse with exertion. -Metoprolol increased to 50 mg daily. Status post right total knee arthroplasty -Management per primary admitting orthopedic surgery team including pain management, wound/dressing management, weightbearing, and PT/OT. Postoperative urinary retention History of BPH -Patient has been straight cathed x 2, if requires a third straight catheterization for urinary retention RN instructed to insert Mckeon catheter. -Continue bladder scan to monitor for postvoid residuals and/or urinary retention, patient to be straight cathed as needed for postvoid residual greater than or equal to 350 cc. -Continue Flomax 0.4 mg nightly. Acute postoperative blood loss anemia, stable and expected finding -Preoperative hemoglobin 12.3, postoperative hemoglobin of 11.0. This is a stable and expected finding, no signs of bleeding. No need for further intervention or repeat testing at this time. Postoperative leukocytosis, reactive no signs of infection -Postoperative leukocytosis with WBC count of 20.12. Believed to be reactive secondary to surgical procedure. Patient showing no signs of infection. Chronic atrial fibrillation CAD with stent Hypertension Hyperlipidemia -Patient to continue daily medication regimen with atorvastatin 40 mg nightly, losartan 25 mg daily, and metoprolol 25 mg daily -Discussed with orthopedic surgery PA, patient cleared to resume Eliquis 5 mg twice daily and was restarted this morning Data reviewed: -Vital signs reviewed and stable. Blood pressure elevated this morning at 197/75 with heart rate of 140, patient atrial fibrillation with RVR. Patient in significant pain working with physical therapy. Order placed for increasing of metoprolol to 50 mg daily and RN instructed on need for tight pain control. -[facility] Thank you for allowing us to participate in the care of this pleasant patient. Do not hesitate to contact us with questions. Someone can be reached from the [facility] hospitalist group all hours of the day at [phone] or via perfect serve. Patient was seen independently by Nurse Practitioner. This document was prepared using [employer] dictation software. Please allow for errors in broker assistant while rare they do occur. I reviewed the documentation as provided by the NATALIE above, who is the original author of this note. I agree with the documented assessment and plan, with the following changes: none Objective - Vital Signs Vital signs: Vital Signs Temp 98.4 F 07/16/23 07:27 Pulse 83 07/16/23 07:27 Resp 19 07/16/23 07:27 BP 197/75 07/16/23 07:27 Pulse Ox 94 L 07/16/23 07:27 FiO2 Intake & Output 07/15/23 07/16/23 07/16/23 18:59 06:59 18:59 Output Total 1095 2000 Balance -1095 -1999 Output: Urine 620 2000 Post Void Residual 475 Other: Voiding Method Indwelling Catheter - Labs CBC & Chem 7: 07/15/23 07:09 07/15/23 07:09 Labs: Abnormal Lab Results - Last 24 Hours (Table) 07/15/23 07/15/23 Range/Units 07:09 07:09 WBC 20.12 H (4.50-10.00) X 10*3/uL RBC 3.59 L (4.40-5.60) X 10*6/uL Hgb 11.0 L (13.0-17.0) g/dL Hct 35.4 L (39.6-50.0) % MCV 98.6 H (80.0-97.0) FL MCHC 31.1 L (32.0-37.0) g/dL Immature Gran # 0.17 H (0.00-0.04) X 10*3/uL Neutrophils # 18.41 H (1.80-7.70) X 10*3/uL Lymphocytes # 0.58 L (0.90-5.00) X 10*3/uL Eosinophils # 0 L (0.04-0.35) X 10*3/uL Glucose 119 H (70-110) mg/dL Total Protein 5.9 L (6.2-8.2) g/dL
[2023-07-17 07:50] VITALS: TEMP 98.4
[2023-07-17] MEDS: METOPROLOL TARTRATE 50 MG TAB PO SCH (09:26)
[2023-07-17 09:47] LABS: Basophils # (A) 0.04 X 10*3/uL (0.00-0.10); Basophils % (A) 0.4 %; Eosinophils # (A) 0.18 X 10*3/uL (0.04-0.35); Eosinophils % (A) 1.7 %; HCT 34.8 % (39.6-50.0); HGB 11.1 g/dL (13.0-17.0); Lymphocytes # (A) 0.81 X 10*3/uL (0.90-5.00); Lymphocytes % (A) 7.5 %; MCH 30.7 pg (27.0-32.0); MCHC 31.9 g/dL (32.0-37.0); MCV 96.1 FL (80.0-97.0); Mean Platelet Volume 11.5 FL (9.5-12.2); Monocytes # (A) 0.96 X 10*3/uL (0.20-1.00); Monocytes % (A) 8.9 %; NRBC Per 100 WBC 0 X 10*3/uL (0.00-0.01); Neutrophils # (A) 8.73 X 10*3/uL (1.80-7.70); Neutrophils % (A) 81.1 %; Platelet Count 147 X 10*3/uL (140-440); RBC 3.62 X 10*6/uL (4.40-5.60); RDW 12.6 % (11.5-14.5); WBC 10.76 X 10*3/uL (4.50-10.00)
[2023-07-17 10:34] LABS: Magnesium 1.9 mg/dL (1.5-2.4)
[2023-07-17 10:49] LABS: ALT 12 U/L (10-49); AST 30 U/L (14-35); Albumin 3.6 g/dL (3.8-4.9); Albumin/Globulin Ratio 1.71 Ratio (1.60-3.17); Alkaline Phosphatase 75 U/L (41-126); BUN/Creat Ratio 17.42 Ratio (12.00-20.00); Blood Urea Nitrogen 20.9 mg/dL (9.0-27.0); Calcium 9.3 mg/dL (8.7-10.3); Carbon Dioxide 22.7 mmol/L (21.6-31.8); Chloride 102 mmol/L (96-109); Globulin 2.1 g/dL (1.6-3.3); Glucose 91 mg/dL (70-110); Potassium 4.4 mmol/L (3.5-5.5); Sodium 134 mmol/L (135-145); Total Protein 5.7 g/dL (6.2-8.2)
--- NOTE | 2023-07-17 12:55 | P.DS ---
Providers Date of admission: 07/15/23 14:12 Expected date of discharge: 07/17/23 Attending physician: Christian London Consults: 07/14/23 08:51 Consult Physician Routine Consulting Provider: José Luis Mensah Consult Reason/Comments: post op medical management Do you want consulting provider notified?: Yes Primary care physician: Aman Preciado - Discharge Diagnosis(es) (1) Right knee DJD Patient was admitted to the OR on 07/17/23 to undergo a right total knee arthroplasty. He had failed conservative measures as an outpatient and desired to proceed with elective surgery after given informed consent. He underwent the above procedure which he tolerated well without complication. Postoperative hospital course has remained without complication. On day of discharge he is afebrile, vital signs stable, labs within acceptable ranges, tolerating by mouth meds and diet, voiding without difficulty, positive flatus, denies abdominal pain or calf pain, pain is controlled on oral pain medication and has no new complaints. Wound is benign, neurovascular status is intact, calf is soft and nontender, abdomen soft and nontender. Review of systems is negative for numbness, tingling, fever, chills, chest pain, shortness of breath, nausea, vomiting, dizziness, headaches, slurred speech or other. Current Visit: Yes Status: Acute Priority: Medium Procedures: Right TKA Patient Condition at Discharge: Good Plan - Discharge Summary Discharge Rx Participant: Yes New Discharge Prescriptions: New Docusate [Colace] 100 mg PO BID #60 capsule Ondansetron [Zofran] 4 mg PO Q8HR PRN #21 tab PRN Reason: Nausea HYDROcodone/APAP 7.5-325MG [[place] 7.5-325] 1 - 2 each PO Q6HR PRN #42 tab PRN Reason: Pain No Action Ball[place] Carbonate [[place] Carbonate ER] 300 mg PO DAILY Multivitamins, Thera [Multivitamin (formulary)] 1 each PO DAILY@1800 Cholecalciferol [Vitamin D3 (25 Mcg = 1000 Iu)] 2,000 unit PO DAILY Ascorbic Acid [Vitamin C] 500 mg PO DAILY@1800 Tamsulosin [Flomax] 0.4 mg PO HS cap.er.24h Losartan [Cozaar] 25 mg PO DAILY Atorvastatin [Lipitor] 40 mg PO HS Apixaban [Eliquis] 5 mg PO BID Metoprolol Tartrate [Lopressor] 25 mg PO DAILY Discharge Medication List [place] Carbonate [[place] Carbonate ER] 300 mg PO DAILY 08/09/15 [History] Ascorbic Acid [Vitamin C] 500 mg PO DAILY@1800 08/11/15 [History] Cholecalciferol [Vitamin D3 (25 Mcg = 1000 Iu)] 2,000 unit PO DAILY 08/11/15 [History] Multivitamins, Thera [Multivitamin (formulary)] 1 each PO DAILY@1800 08/11/15 [History] Tamsulosin [Flomax] 0.4 mg PO HS cap.er.24h 08/13/15 [Rx] Apixaban [Eliquis] 5 mg PO BID 12/24/19 [History] Atorvastatin [Lipitor] 40 mg PO HS 12/24/19 [History] Losartan [Cozaar] 25 mg PO DAILY 12/24/19 [History] Metoprolol Tartrate [Lopressor] 25 mg PO DAILY 07/04/23 [History] Docusate [Colace] 100 mg PO BID #60 capsule 07/17/23 [Rx] HYDROcodone/APAP 7.5-325MG [[place] 7.5-325] 1 - 2 each PO Q6HR PRN #42 tab 07/17/23 [Rx] Ondansetron [Zofran] 4 mg PO Q8HR PRN #21 tab 07/17/23 [Rx] Follow up Appointment(s)/Referral(s): [facility], [NON-STAFF] - As Needed Christian London MD [STAFF PHYSICIAN] - 10 Days Activity/Diet/Wound Care/Special Instructions: WBAT take meds as directed f/u in office may shower in 3 days if no bleeding Discharge Disposition: HOME WITH HOME HEALTH SERVICES
--- NOTE | 2023-07-17 14:03 | P.PN ---
Subjective Progress Note Date: 07/17/23 Hospital course: Patient is a very pleasant 78-year-old male with a past medical history of CAD with stent, chronic atrial fibrillation on anticoagulation with Eliquis, hypertension, hyperlipidemia, obstructive sleep apnea CPAP dependent nightly, and BPH. He is currently admitted under orthopedic surgery team status post elective right total knee arthroplasty secondary to severe right knee osteoarthrosis. We have been consulted for medical management throughout hospitalization. Physical exam: Patient seen and fully evaluated at bedside this morning. Patient sitting up in chair visiting with at bedside. He reports doing much better today and reports pain is currently controlled on current oral pain medication regimen. Patient had no further episodes of atrial fibrillation with RVR and his ventricular rate has remained controlled in the 60s to 80s over the past 24 hours. Blood pressure also stable with increase of metoprolol. Morning blood pressure 163/65, heart rate 89, respiratory rate 18, temp 98.4 F. Mckeon catheter has been pulled and patient urinating without any difficulties. Patient denies having any further complaints including headache, lightheadedness, dizziness, chest pain, palpitations, shortness of breath or experiencing any numbness/tingling in his extremities. Vital signs reviewed and stable. General: Nontoxic, no distress and appears stated age. Derm: Skin warm and dry, normal coloration for ethnicity. Head: Atraumatic, normocephalic and symmetric. Eyes: EOMs intact, no lid lag, and anicteric sclera Mouth: no lip lesions, mucus membranes moist Cardiovascular: Irregularly irregular with normal S1S2, no murmur, positive posterior tibial pulses bilaterally, and cap refill < 2 seconds. Lungs: Respirations even, regular, and unlabored on room air. Lungs CTA bilaterally, no rhonchi, no rales, no wheezing, and no accessory muscle usage. Abdominal: soft, nontender to palpation, no guarding, no appreciable organomegaly Ext: No gross muscle atrophy, no edema, no contractures. Movement and sensation intact. Postoperative dressing/Joe wrap in place to right knee Neuro: Speech clear, face symmetrical and CN II-XII grossly intact with no noted focal neuro deficits Psych: Alert and oriented to person, place, time, and situation. Appropriate and pleasant affect. Assessment and Plan of Care: Atrial fibrillation with RVR, now maintaining controlled ventricular rate -Likely secondary to persistent/moderate pain. Worse with exertion. -Metoprolol was increased to 50 mg daily. Status post right total knee arthroplasty -Management per primary admitting orthopedic surgery team including pain management, wound/dressing management, weightbearing, and PT/OT. Postoperative urinary retention, resolved History of BPH -Mckeon catheter was discontinued and patient urinating without any difficulties at this time with no further episodes of urinary retention or postvoid residual reported. -Continue Flomax 0.4 mg nightly. Acute postoperative blood loss anemia, stable and expected finding -Preoperative hemoglobin 12.3, initial postoperative hemoglobin of 11.0 and this morning it is 11.1. This is a stable and expected finding, no signs of ble eding. No need for further intervention or repeat testing at this time. Postoperative leukocytosis, reactive no signs of infection -Postoperative leukocytosis initially with WBC count of 20.12, significantly improved down to 10.76 this morning. Believed to be reactive secondary to surgical procedure. Patient showing no signs of infection and there is no need for further intervention or testing. Chronic atrial fibrillation CAD with stent Hypertension Hyperlipidemia -Patient to continue daily medication regimen with atorvastatin 40 mg nightly, losartan 25 mg daily, and metoprolol 25 mg daily -Discussed with orthopedic surgery PA, patient cleared to resume Eliquis 5 mg twice daily and was restarted this morning Data reviewed: -Vital signs reviewed and stable. Blood pressure 163/65, heart rate 89, respiratory rate 18, temp 98.4 F, and SpO2 of 95% on room air. -Morning labs reviewed. Patient with significant improvement of postoperative leukocytosis decreasing from 20.12 down to 10.76 and postoperative anemia also stable with hemoglobin of 11.1. Patient cleared from medical perspective for discharge with no further recommendations once cleared by primary admitting orthopedic surgery team. Prescription sent for increased dose of metoprolol 50 mg daily. Thank you for allowing us to participate in the care of this pleasant patient. Do not hesitate to contact us with questions. Someone can be reached from the [facility] hospitalist group all hours of the day at [phone] or via [employer]. Patient was seen independently by Nurse Practitioner. This document was prepared using [employer] dictation software. Please allow for errors in draw bench operator helper while rare they do occur. I reviewed the documentation as provided by the NATALIE above, who is the original author of this note. I agree with the documented assessment and plan, with the following changes: none Objective - Vital Signs Vital signs: Vital Signs Temp 98.4 F 07/17/23 07:45 Pulse 89 07/17/23 07:45 Resp 18 07/17/23 07:45 BP 163/65 07/17/23 07:45 Pulse Ox 93 L 07/17/23 07:45 FiO2 Intake & Output 07/16/23 07/17/23 07/17/23 18:59 06:59 18:59 Output Total 2542 3300 Balance -2542 -3300 Output: Urine 1700 3300 Uretheral (Mckeon) 800 Post Void Residual 842 Other: Voiding Method Indwelling Catheter Toilet Urinal # Bowel Movements 1 - Labs CBC & Chem 7: 07/17/23 05:18 07/17/23 05:18
[2023-07-17 16:07] VITALS: BP 152/75; PULSE 79; RESP 16
== END 2023-07-17 15:19 | disposition home health service (06) ==
LOC: OR 07:41 → 4SSUR 11:16 → OR 07-15 14:12
PROVIDERS: ADMIT Orthopaedic Surgery Sports Medicine; ATTEND Orthopaedic Surgery Sports Medicine
DX: M17.11 Unilateral primary osteoarthritis, right knee (principal); N99.89 Other postprocedural complications and disorders of genitourinary system; R33.8 Other retention of urine; N40.1 Benign prostatic hyperplasia with lower urinary tract symptoms; D62 Acute posthemorrhagic anemia; D72.829 Elevated white blood cell count, unspecified; I10 Essential (primary) hypertension; E78.5 Hyperlipidemia, unspecified; I25.10 Atherosclerotic heart disease of native coronary artery without angina pectoris; I48.20 Chronic atrial fibrillation, unspecified; G47.33 Obstructive sleep apnea (adult) (pediatric); F31.9 Bipolar disorder, unspecified; I25.2 Old myocardial infarction; Z79.01 Long term (current) use of anticoagulants; Z79.899 Other long term (current) drug therapy; Z88.2 Allergy status to sulfonamides; Z95.5 Presence of coronary angioplasty implant and graft
CPT/HCPCS: 27447; 97530; 97161; 64999; 64448; 80053 ×2; 80178; 83735 ×2; 85025 ×2; 73560; G0378 ×3; C1776; C1713; C1751; J2250; J0330; J1100; J2710; J0690 ×3; J2405 ×2; J2001; J3010; J2795; J2704; J1170 ×2; J1805

== ENCOUNTER 2023-08-24 08:42 | Day surgery (SDC) | payer MEDICARE ==
[~2023-08-24 08:42] MED LIST changes: -LIDOCAINE 1% (10MG/ML) FOR IV START INTRADERMA PRN; -MIDAZOLAM 2 MG/2 ML VIAL IV PRN; -ONDANSETRON 4 MG/2 ML VIAL IVP PRN; +SODIUM CHLORIDE 0.9% 1,000 ML IV SCH; -TRANEXAMIC 1,000 MG/100ML-NACL 1,000 MG in SALINE 1 100ML.BAG IVPB PRN
[2023-08-24] MEDS: SODIUM CHLORIDE 0.9% 500 ML 500 ML IV ONE (09:26)
[2023-08-24 09:54] VITALS: TEMP 97.4
[2023-08-24] MEDS ORDERED: LIDOCAINE 1% INJ 10MG/ML (20 ML MDV) ONE (10:02)
[2023-08-24] MEDS ORDERED: PROPOFOL 10 MG/ML 20 ML VIAL IV ONE (10:02)
[2023-08-24 10:07] LABS: African American GFR (CKD) 84 (>60 ml/min/1.73 sqM); Anion Gap 3 mmol/L; Blood Urea Nitrogen 16 mg/dL (9-20); Calcium 8.9 mg/dL (8.4-10.2); Carbon Dioxide 25 mmol/L (22-30); Chloride 110 mmol/L (98-107); Glucose 96 mg/dL (74-99); Non-African American GFR(CKD) 73 (>60 ml/min/1.73 sqM); Potassium 4.1 mmol/L (3.5-5.1); Sodium 138 mmol/L (137-145)
--- NOTE | 2023-08-24 11:02 | CE ---
CARDIAC ELECTROPHYSIOLOGY REPORT PROCEDURE PERFORMED: Electrical cardioversion. INDICATION: Persistent atrial fibrillation in spite of medical therapy. CLINICAL INFORMATION: Mr. Yonatan Rosado is a 78-year-old gentleman with history of CAD, prior PCI of major diagonal branch performed in 2016. He also has hypertension, hyperlipidemia, chronic bipolar disorder, and paroxysmal atrial fibrillation and had cardioversion in 2019. He had a recent knee operation, following which he developed atrial fibrillation and remains in that in spite of amiodarone. He was advised electrical cardioversion after being placed on Eliquis 5 mg b.i.d. Risks, benefits, options were explained. He understood all details and wished to proceed with the procedure. PROCEDURE DETAILS: Under the influence of [id number] intravenous anesthetic agent with the attendance of the anesthesiologist, a single shock of 120 joules was initially delivered to the chest wall with anterior and posterior patches. Patient remained in atrial fibrillation and hemodynamically stable. A repeat shock of 200 was then given. This was also unsuccessful. Patient's atrial fibrillation persisted. This is therefore unsuccessful electrical cardioversion. The patient will be discharged, and we will pursue rate control and look at other options. He is hemodynamically stable and neurologically intact. This was unsuccessful cardioversion. He will be discharged later on today after he has had a meal and ambulates. MMODL / IJN: [id number] /
[2023-08-24 11:51] VITALS: BP 117/61; PULSE 61; RESP 16
== END 2023-08-24 12:11 | disposition home or self-care (01) ==
LOC: OR 08:42
PROVIDERS: ATTEND Internal Medicine Interventional Cardiology
DX: I48.0 Paroxysmal atrial fibrillation (principal); F31.9 Bipolar disorder, unspecified; I25.10 Atherosclerotic heart disease of native coronary artery without angina pectoris; I10 Essential (primary) hypertension; E78.5 Hyperlipidemia, unspecified; Z79.01 Long term (current) use of anticoagulants; Z79.899 Other long term (current) drug therapy
CPT/HCPCS: 92960; 80048; J2001; J2704

== ENCOUNTER → 2024-01-17 | Outpatient (CLI) | payer MEDICARE ==
[2024-01-17 19:44] LABS: HCT 38.3 % (39.6-50.0); HGB 11.7 g/dL (13.0-17.0); MCH 31.1 pg (27.0-32.0); MCHC 30.5 g/dL (32.0-37.0); MCV 101.9 FL (80.0-97.0); Mean Platelet Volume 11.4 FL (9.5-12.2); NRBC Per 100 WBC 0 X 10*3/uL (0.00-0.01); Platelet Count 196 X 10*3/uL (140-440); RBC 3.76 X 10*6/uL (4.40-5.60); RDW 12.4 % (11.5-14.5); WBC 6.78 X 10*3/uL (4.50-10.00)
[2024-01-17 20:20] LABS: Chloride 104 mmol/L (96-109); Potassium 4.8 mmol/L (3.5-5.5); Sodium 139 mmol/L (135-145)
[2024-01-17 20:21] LABS: Carbon Dioxide 25.9 mmol/L (21.6-31.8)
== END | disposition home or self-care (01) ==
LOC: LABWHC1 15:29
PROVIDERS: ATTEND Internal Medicine Clinical Cardiac Electrophysiology
CPT/HCPCS: 36415; 80051; 82565; 84520; 85027

== ENCOUNTER 2024-01-23 05:33 | Day surgery (SDC) | payer MEDICARE ==
[2024-01-23] MEDS: SODIUM CHLORIDE 0.9% 1,000 ML IV ONE (06:28)
[2024-01-23 06:49] LABS: ALT 17 U/L (4-49); AST 25 U/L (17-59); African American GFR (CKD) 68 (>60 ml/min/1.73 sqM); Albumin 4.1 g/dL (3.5-5.0); Alkaline Phosphatase 87 U/L (38-126); Anion Gap 4 mmol/L; Blood Urea Nitrogen 25 mg/dL (9-20); Calcium 9.1 mg/dL (8.4-10.2); Carbon Dioxide 26 mmol/L (22-30); Chloride 107 mmol/L (98-107); Glucose 90 mg/dL (74-99); Non-African American GFR(CKD) 59 (>60 ml/min/1.73 sqM); Potassium 4.2 mmol/L (3.5-5.1); Sodium 137 mmol/L (137-145); Total Bilirubin 1.1 mg/dL (0.2-1.3); Total Protein 6.8 g/dL (6.3-8.2)
[2024-01-23] MEDS ORDERED: LIDOCAINE 4% LTA KIT (4 ML) TOPICAL ONE (07:31)
[2024-01-23] MEDS ORDERED: PHENYLEPHRINE 10 MG/ML VIAL ONE (07:31)
[2024-01-23] MEDS ORDERED: fentaNYL (PF) 50 MCG/ML 2 ML AMP ONE (07:31)
[2024-01-23] MEDS ORDERED: PROPOFOL 10 MG/ML 20 ML VIAL IV ONE (07:31)
[2024-01-23] MEDS ORDERED: HEPARIN SODIUM,PORCINE 10,000 UNIT/ML 1 ML VIAL ONE (07:31)
[2024-01-23] MEDS ORDERED: MIDAZOLAM 2 MG/2 ML VIAL ONE (07:31)
[2024-01-23] MEDS ORDERED: SUCCINYLCHOLINE CHLORIDE 200 MG/10 ML VIAL IV ONE (07:31)
[2024-01-23] MEDS: HEPARIN SODIUM,PORCINE (1 ML) 2,500 UNIT in SODIUM CHLORIDE 0.9% 250 ML IRRIGATION ONE (07:35)
[2024-01-23] MEDS: HEPARIN SODIUM,PORCINE 10,000 UNIT in SODIUM CHLORIDE 0.9% 1,000 ML IRRIGATION ONE (07:35)
--- NOTE | 2024-01-23 07:51 | P.HPCAR ---
History of Present Illness This is Dr. Carrasco dictating an H/P on this patient The patient was interviewed and examined IMPRESSION / ASSESSMENT: Symptomatic persistent atrial fibrillation, failed medical treatment Biatrial enlargement with left ventricular ejection fraction of 50-55% right and left atria severely enlarged Coronary artery disease with stenting to the diagonal vessel 2016 in the setting of an acute myocardial infarction at that time Hypertension Dyslipidemia Obstructive sleep apnea using a CPAP mask PLAN: A-fib ablation Continue anticoagulation HPI Patient denies any chest discomfort anginal-like symptoms in the last several weeks. His main complaint is tiredness fatigue and some shortness of breath on exertion but there has been no change since I saw him last No loss of consciousness no dizziness, no lower extremity edema Denies any fever chills cough expectoration ROS: No fever chills or rigors, no cough, phlegm or expectoration, no nausea, vomiting or diarrhea, no hematuria, dysuria, no musculoskeletal complaints, no strokes or seizures, no skin lesions. EXAMINATION: Resting heart rates in the 60s and 70s, afebrile Blood pressure 133/61 mmHg Heart sounds are irregular no murmurs Breath sounds are reduced bilaterally with there are no rhonchi no crackles No JVD No lower extremity edema REVIEW OF LABS, ECG & MEDICAL DATA Sodium 137, potassium 4.7 BUN 25 and creatinine 1.2 LFT normal TSH 5.6 Physical Exam Vitals: Vital Signs Temp Pulse Resp BP Pulse Ox 01/23/24 06:29 97.7 F 68 16 133/61 97 Intake and Output 01/22/24 01/23/24 01/23/24 22:59 06:59 14:59 Intake Total 50 0 Balance 50 0 Intake: IV 50 0 Other: Weight 90.4 kg Past Medical History Past Medical History: Atrial Fibrillation, Hyperlipidemia, Hypertension, Myocardial Infarction (SD), Prostate Disorder, Sleep Apnea/CPAP/BIPAP Additional Past Medical History / Comment(s): uses CPAP Last Myocardial Infarction Date:: 07/2015 History of Any Multi-Drug Resistant Organisms: None Reported Past Surgical History: Ear Surgery, Heart Catheterization With Stent, Orthopedic Surgery, Tonsillectomy Additional Past Surgical History / Comment(s): JULY 14 2023 RIGHT KNEE. Bilat thumb sx. sinus sx. bilat cataracts removed with lens implants. bunionectomy and hammer toe fixed rt foot. colonoscopy,. electrocardioversion/ablation for afib. Past Anesthesia/Blood Transfusion Reactions: Postoperative Nausea & Vomiting (PONV) Additional Past Anesthesia/Blood Transfusion Reaction / Comment(s): severe PONV after a surgery years ago in 1995 Date of Last Stent Placement:: 07/2015 Smoking Status: Never smoker - Past Family History Mother Family Medical History: Cancer Physical Examination Vital Signs Temp Pulse Resp BP Pulse Ox 01/23/24 06:29 97.7 F 68 16 133/61 97 Intake and Output 01/22/24 01/23/24 01/23/24 22:59 06:59 14:59 Intake Total 50 0 Balance 50 0 Intake: IV 50 0 Other: Weight 90.4 kg Results 01/23/24 06:05 Cardiac Enzymes 01/23/24 Range/Units 06:05 AST 25 (17-59) U/L Comprehensive Metabolic Panel 01/23/24 Range/Units 06:05 Sodium 137 (137-145) mmol/L Potassium 4.2 (3.5-5.1) mmol/L Chloride 107 (98-107) mmol/L Carbon Dioxide 26 (22-30) mmol/L BUN 25 H (9-20) mg/dL Creatinine 1.20 (0.66-1.25) mg/dL Glucose 90 (74-99) mg/dL Calcium 9.1 (8.4-10.2) mg/dL AST 25 (17-59) U/L ALT 17 (4-49) U/L Alkaline Phosphatase 87 (38-126) U/L Total Protein 6.8 (6.3-8.2) g/dL Albumin 4.1 (3.5-5.0) g/dL Current Medications Generic Name Dose Route Start Last Admin Trade Name Freq PRN Reason Stop Dose Admin Sodium Chloride 1,000 mls @ 20 mls/hr 01/23/24 05:56 Saline 0.9% IV 02/22/24 05:55 .Q24H REMIGIO Intake and Output 01/22/24 01/23/24 01/23/24 22:59 06:59 14:59 Intake Total 50 0 Balance 50 0 Intake: IV 50 0 Other: Weight 90.4 kg 01/23/24 06:05
[2024-01-23] MEDS ORDERED: ACETAMINOPHEN TAB 325 MG TAB PO PRN (07:52)
[2024-01-23] MEDS: HEPARIN SOD,PORK IN 0.45% NACL 25,000 UNIT in 0.45% NACL 1 250ML.BAG IV ONE (08:00)
[2024-01-23] MEDS: LIDOCAINE 1% INJ 10MG/ML (20 ML MDV) SQ ONE (08:03)
[2024-01-23] MEDS: HEPARIN SODIUM (1,000 UNIT/ML) 1,000 UNIT in SODIUM CHLORIDE 0.9% 1,000 ML IRRIGATION ONE (10:00)
--- NOTE | 2024-01-23 10:58 | P.EPPROC ---
- EP Procedure Note Electrophysiology Procedure Note: PROCEDURE A. fib ablation DIAGNOSIS Atrial fibrillation, symptomatic, refractory to therapy RESULT Mildly thickened pericardium Successful A. fib ablation/pulmonary vein isolation of all veins using cryo- ablation Ablation of the left atrial septum with confirmed ablation of the tissue Ablation of the left atrial roof with confirmed broad segment ablation/isolation Complete entrance block in all 4 veins confirmed No evidence for phrenic nerve injury Esophageal deflection YES Electrical cardioversion with a synchronized shock across the chest YES PROCEDURE DETAILS Written informed consent prior to procedure. Patient brought to the EP lab. General anesthesia given. Heparin administered. A city maintained above 300 seconds Both groins prepped and draped per protocol and venous sheaths placed. Esophagus intubated, circa catheter for temperature monitoring an endoscope for possible esophageal deflection. Phrenic nerve monitoring performed. Esophageal temperature monitoring performed. Esophageal deflection performed if circa catheter overlapping with the balloon or circa temperature less than 27.5C Intracardiac echocardiography performed. Pericardium evaluated. Left atrial appendage evaluated. Left atrium evaluated along with pulmonary veins Transseptal catheterization performed under fluoroscopic guidance and intracardiac echo guidance Cryoablation sheath exchanged, balloon catheter along with achieve catheter placed in the left atrium. Pulmonary veins isolated in the following sequence: Left superior pulmonary vein followed by left inferior pulmonary vein, followed by right inferior pulmonary vein and lastly right superior pulmonary vein. Phrenic nerve stimulation along with capture thresholds within the SVC and right superior pulmonary vein to identify the phrenic nerve proximity to the cryo- balloon. Pulmonary veins isolated and confirmed with entrance and exit block. Phrenic nerve integrity confirmed at the end of the procedure Ablation of the left atrial roof performed with sequential lesions from the left superior to the right superior pulmonary veins. Ablation of the electrograms confirmed Ablation of the left atrial septum performed with cannulation of the superior branch of the right inferior to achieve ablation of the posterior septum of the left atrium. Ablation of electrograms confirmed Electrical cardioversion performed for persistence of atrial fibrillation despite successful ablation. Diagnostic catheters for the high right atrium, His bundle, coronary sinus placed. LA and RA pressures recorded LA pressure: 20/0/9 RA 13/0/6 Diagnostic EP study with coronary sinus pacing and recording Baseline measurements: QRS 109 ms, QT interval 386 ms, junctional rhythm under anesthesia post cardioversion Venous sheaths were removed and hemostasis assured with a closure device. Patient extubated and transferred to recovery PROCEDURES PERFORMED Diagnostic EP study CS pacing and recording Left and right transseptal catheterization Catheter the mapping of the tachycardia Intracardiac echocardiography Pulmonary vein isolation with transseptal and comprehensive EPS, [id number] Left atrial roof line, +[id number] Linear ablation, left atrium, +[id number] Electrical cardioversion with a synchronized shock across the chest [id number]
[2024-01-23] MEDS: METOPROLOL TARTRATE 25 MG TAB PO SCH (12:39)
[2024-01-23] MEDS: APIXABAN 5 MG TAB PO SCH (12:39)
[2024-01-23] MEDS: LOSARTAN 25 MG TAB PO SCH (12:39)
[2024-01-23] MEDS: ACETAMINOPHEN IV (For NPO) 1,000 MG in EMPTY BAG 1 BAG IVPB ONE (12:51)
[2024-01-23] MEDS: LITHIUM CARBONATE 300 MG CAP PO SCH (12:55)
[2024-01-23] MEDS: SODIUM CHLORIDE 0.9% 1,000 ML IV SCH (13:28)
[2024-01-23 13:59] LABS: Basophils % (A) 0 %; Eosinophils % (A) 0 %; HCT 35.2 % (39.0-53.0); HGB 11.5 gm/dL (13.0-17.5); Lymphocytes # (A) 0.7 k/uL (1.0-4.8); Lymphocytes % (A) 6 %; MCH 32.6 pg (25.0-35.0); MCHC 32.7 g/dL (31.0-37.0); MCV 99.8 fL (80.0-100.0); Mean Platelet Volume 9.5; Monocytes # (A) 0.5 k/uL (0-1.0); Monocytes % (A) 4 %; Neutrophils # (A) 10.9 k/uL (1.3-7.7); Neutrophils % (A) 89 %; Platelet Count 157 k/uL (150-450); RBC 3.53 m/uL (4.30-5.90); RDW 12.3 % (11.5-15.5); WBC 12.2 k/uL (3.8-10.6)
[2024-01-23] MEDS: ATORVASTATIN 40 MG TAB PO SCH (21:44)
[2024-01-23] MEDS: TAMSULOSIN 0.4 MG CAP.ER.24H PO SCH (21:44)
[2024-01-24 07:32] VITALS: BP 132/64; PULSE 65; RESP 15; TEMP 98.8
--- NOTE | 2024-01-24 12:09 | P.DS ---
Providers Attending physician: Gerhard Carrasco Primary care physician: [place] [facility] Course: Patient is doing well. Resting comfortably in bed. Asymptomatic no chest pain dizziness lightheadedness or palpitations heart rates are in the 60s Blood pressure 131/72 mmHg afebrile He is off beta-blockers for now Lungs are clear on auscultation no rhonchi no crackles Heart sounds S1-S2 normal no murmurs or gallop no rub No lower extremity edema Groins of healed well no hematoma no swelling Twelve-lead EKG shows sinus rhythm WI interval at the upper limits of normal normal QRS and ST segments Impression Persistent atrial fibrillation with PVI, ablation of the left atrial septum and left atrial roof Patient remained in atrial fibrillation and underwent electrical cardioversion successfully Follow-up mapping of the left atrium revealed complete isolation of the pulmon chaitanya veins and ablation in the left atrial roof and septum However with mechanical stimulation atrial fibrillation was reinduced and he underwent successful electrical cardioversion for this Plan Continue anticoagulation Hold metoprolol Follow-up with Dr. Silva Reevaluate need for beta-blockers Plan - Discharge Summary Discharge Rx Participant: No New Discharge Prescriptions: No Action RX: Multivitamins, Thera [Multivitamin (formulary)] 1 each PO DAILY@1800 RX: Cholecalciferol [Vitamin D3 (25 Mcg = 1000 Iu)] 2,000 unit PO DAILY RX: Ascorbic Acid [Vitamin C] 500 mg PO DAILY@1800 RX: Tamsulosin [Flomax] 0.4 mg PO HS cap.er.24h RX: Losartan [Cozaar] 25 mg PO QAM RX: Atorvastatin [Lipitor] 40 mg PO HS RX: Apixaban [Eliquis] 5 mg PO BID Docusate [Colace] 100 mg PO BID #60 capsule RX: [place] Carbonate 300 mg PO QAM RX: Testosterone [Androgel 1.62% Gel Packet] 1 applic TOPICAL DAILY RX: Metoprolol Tartrate [Lopressor] 25 mg PO QAM Discharge Medication List RX: Ascorbic Acid [Vitamin C] 500 mg PO DAILY@1800 08/11/15 [History] RX: Cholecalciferol [Vitamin D3 (25 Mcg = 1000 Iu)] 2,000 unit PO DAILY 08/11/15 [History] RX: Multivitamins, Thera [Multivitamin (formulary)] 1 each PO DAILY@1800 05/02/16 [History] RX: Tamsulosin [Flomax] 0.4 mg PO HS cap.er.24h 08/13/15 [Rx] RX: Apixaban [Eliquis] 5 mg PO BID 12/24/19 [History] RX: Atorvastatin [Lipitor] 40 mg PO HS 12/24/19 [History] RX: Losartan [Cozaar] 25 mg PO QAM 12/24/19 [History] Docusate [Colace] 100 mg PO BID #60 capsule 07/17/23 [Rx] RX: Metoprolol Tartrate [Lopressor] 25 mg PO QAM 08/19/23 [History] RX: [place] Carbonate 300 mg PO QAM 01/17/24 [History] RX: Testosterone [Androgel 1.62% Gel Packet] 1 applic TOPICAL DAILY 01/17/24 [History] Follow up Appointment(s)/Referral(s): Ryan Silva MD [STAFF PHYSICIAN] - 01/30/24 3:00 pm (Please hold metoprolol until follow up with Dr Silva.) Activity/Diet/Wound Care/Special Instructions: Post EP study - Ablation instructions 1. Keep access sites dry for 2 days. 2. No heavy lifting or straining for 2 days. 3. Avoid bending the hips repeatedly for 2 days. 4. You may go up and down stairs slowly 5. If you have had an ablation for atrial fibrillation or atrial flutter and a re on a blood thinner, do not stop the blood thinner even temporarily for 3 months post ablation Call if the following is noted 1. Bleeding, increasing swelling or pain at the access sites. 2. Increasing chest discomfort, especially upon taking a deep breath. 3. Increasing shortness of breath, at rest or with exertion. 4. Undue cough / phlegm 5. Difficulty or pain while swallowing. 6. Pain or change in color in the extremities. 7. Fever, chills, rigors. 8. Increasing headache or neurologic symptoms. 9. Dizziness, fainting, palpitations Continue uninterrupted Eliquis for 3 months. Do not stop Eliquis for any minor surgery or procedure for the next 3 months Discharge Disposition: HOME SELF-CARE
== END 2024-01-24 12:40 | disposition home or self-care (01) ==
LOC: CATHEP 05:33 → 6NMEDSUR 10:20 → CATHEP 01-24 12:40
PROVIDERS: ATTEND Internal Medicine Clinical Cardiac Electrophysiology
CPT/HCPCS: 80053; 84439; 84443; 85025; 86850; 86900; 86901; 92960; 93656; 93657

== ENCOUNTER → 2024-05-10 | Outpatient (CLI) | payer MEDICARE ==
[2024-05-11 03:21] LABS: Blood Urea Nitrogen 20.7 mg/dL (9.0-27.0)
== END | disposition home or self-care (01) ==
LOC: LABWHC1 14:55
PROVIDERS: ATTEND Psychiatry & Neurology Psychiatry
DX: Z79.899 Other long term (current) drug therapy (principal)
CPT/HCPCS: 36415; 80178; 82565; 84443; 84520